=== PATIENT | female | born 1995 ===

== ENCOUNTER 2024-10-16 | Outpatient (REF) | payer MEDICAID, SELFPAY ==
[2024-10-18 11:55] LABS: Bacterial Vaginosis PCR NEGATIVE (Negative); Candida Group PCR NOT DETECTED (Not Detect); Candida glab krusei PCR NOT DETECTED (Not Detect); Trichomonas vaginalis PCR NOT DETECTED (Not Detect)
[2024-10-18 18:24] LABS: CT PCR NOT DETECTED (Not Detect.); NG PCR NOT DETECTED (Not Detect.)
== END 2024-10-16 00:01 | disposition home or self-care (01) ==
LOC: HO.HHCLNP
PROVIDERS: Visit Provider Internal Medicine
DX: J06.9 Acute upper respiratory infection, unspecified (principal)
CPT/HCPCS: 81515; 87491; 87591

== ENCOUNTER 2024-11-29 10:04 | Outpatient (REF) | payer MEDICAID, SELFPAY ==
[2024-11-29 11:21] LABS: MANUAL DIFF FLAG NO
[2024-11-29 11:44] LABS: Basophils Percent Auto 0.3 % (0-2); Eosinophils Percent Auto 0.6 % (0-4); Hematocrit 37.3 % (37.0-47.0); Hemoglobin 12.5 g/dl (12.0-16.0); Lymphocytes Absolute Auto 1.8 X10*3/uL (1.2-4.9); Lymphocytes Percent Auto 54.8 % (20-40); Mean Corpuscular HGB Conc 33.5 g/dl (31.0-35.0); Mean Corpuscular Hemoglobin 29.8 pg (27.0-33.0); Mean Platelet Volume 10.9 fL (9.4-12.3); Monocytes Absolute Auto 0.3 X10*3/uL (0.1-1.2); Monocytes Percent Auto 7.7 % (2-11); Neutrophils Absolute Auto 1.2 x10*3/uL (2.0-8.3); Neutrophils Percent Auto 36.6 % (45-73); Platelet Count 144 X10*3/uL (160-400); Red Blood Count 4.19 X10*6/uL (4.20-5.50); Red Cell Distribution Width 12.3 % (11.0-16.0); White Blood Count 3.2 X10*3/uL (4.8-10.8)
[2024-11-29 12:22] LABS: Alanine Aminotransferase 11 U/L (0-31); Albumin Level 4.1 g/dL (3.5-5.0); Alkaline Phosphatase 47 U/L (39-117); Anion Gap 10 (12-20); Aspartate Amino Transferase 21 U/L (5-31); Bilirubin Direct 0.3 mg/dL (0.0-0.5); Bilirubin Total 0.6 mg/dL (0.0-1.0); Blood Urea Nitrogen 14 mg/dL (9-16); Calcium 8.8 mg/dL (8.4-10.2); Carbon Dioxide 26 mmol/L (22-29); Chloride 109 mmol/L (96-108); Cholesterol 104 mg/dL (<200); Estimated Glomerular Filt Rate > 60; Glucose Random 83 mg/dL (60-115); HDL Cholesterol 50 mg/dL (>40); LDL Cholesterol Calculated 45 mg/dL (<100); Potassium 4.3 mmol/L (3.3-5.1); Sodium 141 mmol/L (135-145); Total Protein 7.8 g/dL (6.5-8.0); Triglycerides 46 mg/dL (<150)
[2024-11-29 12:23] LABS: TSH reflex Free T4 1.19 uIU/mL (0.32-4.0)
[2024-11-29 12:26] LABS: HIV AB/AG Nonreactive (Nonreactive); HIV Num 1 0.11 S/CO (0.00-0.99)
[2024-11-29 12:27] LABS: Syphilis Screen Nonreactive (Nonreactive)
--- OUTSIDE RECORDS SUMMARY | 2024-11-29 12:28 | XMS_ITS | Encounter Summary ---
Author Organization [employer] Address [address] [facility] 7t [place] [address] Care Team Providers Care Regulatory Submissions Associate Name Role Phone Kat Nguyen MD Primary Care Provider + Reason for Visit * Reason Onset Date Comments Chart prep 11/26/2024 Encounter Details Date Type Department Care Team (Late st Contact Info) Description 11/26/2024 Telephone [facility] [address] [place] [address] [phone] Kat Nguyen MD [address] [place], [place] [phone] Chart prep Social History Tobacco Use Types Packs/Day Years Used Date Smoking Tobacco: Never Assessed Comments Unknown Sex and Gender Information Value Date Recorded Sex Assigned at Female 10/16/2024 11:19 AM EST Legal Sex Female 11:13 AM EST Gender Identity Female 10/16/2024 11:19 AM EST Sexual Orientation Straight 10/16/2024 11 :19 AM EST documented as of this encounter Miscellaneous Notes * Telephone Encounter - Amanda Kasper [place] - 11/26/2024 1:36 PM EDT Chart Prep Labs: done Images: not applicable Vaccines due: yes Referrals: N/A Screenings: pap smear Overdue care gaps: SDOH, PHQ-9 documented in this encounter Plan of Treatment Upcoming Encounters Date Type Department Care Team (Late st Contact Info) Description 02/25/2025 3:45 PM EDT Office Visit [facility] [address] [place] [address] Kat Nguyen MD [address] [place] [address] documented as of this encounter Visit Diagnoses Not on filedocumented in this encounter Care Teams Regulatory Submissions Associate Relationship Specialty Start Date End Date Kat Nguyen MD [address] [place] [address] PCP - General Internal Medicine 10/16/24 documented as of this encounter
--- OUTSIDE RECORDS SUMMARY | 2024-11-29 12:28 | XMS_ITS | Encounter Summary ---
Author Organization [employer] Address [address] 7t [place] [address] Care Team Providers Care Park Manager Name Role Phone Kat Nguyen MD Primary Care Provider + Encounter Details Date Type Department Care Team ([facility] st Contact Info) Description 11/29/2024 Telephone [facility] [address] [place], [place] [phone] Kat Nguyen MD [address] [place] [address] Social History Tobacco Use Types Packs/Day Years Used Date Smoking Tobacco: Never Smokeless Tobacco: Never Alcohol Use Standard Drinks/Week Comments Never 0 (1 standard drink = 0.6 oz pur e alcohol) Housing Stability Answer Date Recorded What is your housing situation today? I do not have housing (Staying with others, in a hotel, in a nursing home, living outside on the street, on a beach, in a car, or in a park 11/29/[address] you li ve. Do you have problems with any of the following? None of the above 11/29/2024 Food Insecurity Answer Date Recorded Within the past 12 months, y ou worried that your food would run out before you got money to buy more: Never True 11/29/2024 Within the past 12 months,th e food you bought just didn't last and you didn't have enough money to get more: Never True Transportation Answer Date Recorded In the past 12 months, has l ack of transportation kept you from medical appts, meetings, work or from getting things needed for daily living? Yes, it has kept me from medical appointments or getting medications.;Yes, it has kept me from non-medical meetings, work, or getting things that I need 11/29/2024 Utilities Answer Date Recorded In the past 12 months, has t he electric, gas, oil or water company threatened to shut off services in your home? No 11/29/2024 Depression Answer Date Recorded Patient Health Questionnaire-2 Score 2 11/29/2024 Internet Access Answer Date Recorded Internet Access Q1 No 11/29/2024 Internet Access Q2 I do not want or need it 11/17 Comments No Sex and Gender Information Value Date Recorded Sex Assigned at Female 10/16/2024 11:19 AM EST Legal Sex Female 11:13 AM EST Gender Identity Female 10/16/2024 11:19 AM EST Sexual Orientation Straight 10/16/2024 11 :19 AM EST documented as of this encounter Miscellaneous Notes * Telephone Encounter - Barbara Faria - 11/29/2024 9:54 AM EDT Excuse for work documented in this encounter Plan of Treatment Upcoming Encounters Date Type Department Care Team (Late st Contact Info) Description 02/25/2025 3:45 PM EDT Office Visit [facility] [address] [place] [address] Kat Nguyen MD [address] [place] [address] documented as of this encounter Visit Diagnoses Not on filedocumented in this encounter Care Teams Park Manager Relationship Specialty Start Date End Date Kat Nguyen MD [address] [place] [address] PCP - General Internal Medicine 10/16/24 documented as of this encounter
--- OUTSIDE RECORDS SUMMARY | 2024-11-29 12:28 | XMS_ITS | Encounter Summary ---
Author Organization [employer] Address [address] [facility] 7[address] [place] [address] Care Team Providers Care Standards Engineer Name Role Phone Kat Nguyen MD Primary Care Provider + Reason for Referral * Consultation (Routine) - Authorized Specialty Diagnoses / Procedures Referred By Lucy reina Referred To Contact Optometry Diagnoses Decreased vision in both eyes Kat Nguyen MD [address] [place], [place] Phone: tel: fax: [facility] [address], [place] Phone: tel: fax: Referral ID Status Reason Start Date Expiration Date Visits Requested Visits Authorized [id number] Authorized Consult and Treat 11/29/2024 11/29/2025 1 1 * Consultation (Routine) - Authorized Specialty Diagnoses / Procedures Referred By Contac t Referred To Contact Midwifery Diagnoses Breakthrough bleeding on Nexplanon Kat Nguyen MD [address] [place], [place] Phone: tel: fax: Barbi Monroe CNM [address] [place], [place] Phone: tel: fax: Referral ID Status Reason Start Date Expiration Date Visits Requested Visits Authorized [id number] Authorized Consult and Treat 11/29/2024 11/29/2025 1 1 Reason for Visit * Reason Comments new patient appointment Encounter Details Date Type Department Care Team (Late st Contact Info) Description 11/29/2024 9:15 AM EDT Office Visit [facility] [address] [place] [address] Kat Nguyen MD [address] [place], [place] [phone] Breakthrough bleeding on Nexplanon (Primary Dx); Adjustment disorder with anxious mood; Vulvovaginitis; Acute bilateral thoracic back pain; Slow transit constipation; Decreased vision in both eyes Social History Tobacco Use Types Packs/Day Years Used Date Smoking Tobacco: Never Smokeless Tobacco: Never Tobacco Cessation:Counseling Given: Not Answered Alcohol Use Standard Drinks/Week Comments Never 0 (1 standard drink = 0.6 oz pur e alcohol) Housing Stability Answer Date Recorded What is your housing situation today? I do not have housing (Staying with others, in a hotel, in a long-term, living outside on the street, on a [...] AM EST documented as of this encounter Last Filed Vital Signs Vital Sign Reading Time Taken Comments Blood Pressure 103/63 11/29/2024 9:19 AM EDT Pulse 62 11/29/2024 9:19 AM EDT Temperature 35.7 ??C (96.3 ??F) 11/29/2024 9:19 AM ED T Respiratory Rate 12 11/29/2024 9:19 AM EDT Oxygen Saturation 100% 11/29/2024 9:19 AM EDT Inhaled Oxygen Concentration - - Weight 63.7 kg (140 lb 8 oz) 11/29/2024 9:19 AM EDT Height 172.4 cm (5' 7.88 ) 11/29/2024 9:19 AM ED T Body Mass Index 21.44 11/29/2024 9:19 AM EDT documented in this encounter Miscellaneous Notes * Patient Education Note - Kat Nguyen MD - 11/29/2024 1:45 PM EDT Images from the original note were not included. Patient Education Table of Contents C?mo controlar el dolor de espalda cr?rosalva (Managing Chronic Back Pain) To view videos and all your education online visit, [email or web address] or scan this QR code with your smartphone. Access to this content will in one year. C?mo controlar el dolor de espalda cr?rosalva Managing Chronic Back Pain El dolor de espalda cr?rosalva es aquel que dura m?s de 3 meses. Con frecuencia afecta la [place] lumbar de la espalda. Puede experimentarse mehran un dolor muscular o mehran un dolor intenso y punzante. Puedeser leve, moderado o intenso. Hay cosas que puede hacer para controlar el dolor. Jenna qu?? funciona mejor para usted. El m?dico tambi?n podr?? darle otras instrucciones. ?Qu?? medidas puedo cliff para controlar mi dolor de espalda cr?rosalva? Es posible que el m?dico le d?? un plan de tratamiento. El tratamiento suele comenzar con reposo y alivio del dolor. Tambi?n puede incluir lo siguiente: Fisioterapia. Estos son ejercicios cuyo fin es restaurar toda la movilidad y la fuerza de la espalda. T?cnicas para ayudarlo a relajarse. Asesoramiento psicol?gico o terapia. La terapia cognitivo conductual (TCC) es lala forma de terapia que lo ayuda a establecer objetivos y hacer cambios. Acupuntura o terapia de masajes. Estimulaci?n el?ctrica local. Inyecciones. Pueden administrarle medicamentos para adormecer la [place] o aliviar el dolor. Si otros tratamientos no resultan eficaces, giovanny vez deba someterse a lala cirug?a. C?mo usar la mec?carli del cuerpo y la postura para aliviar el dolor Puede ayudar a aliviar la tensi?n de la espalda con lala buena postura y mec?carli corporal saludable. La mec?carli corporal es la forma en que el cuerpo se mueve stormy el d?a. La postura es lala partede la mec?carli corporal. Lala buena postura significa que: La columna est?? en way posici?n correcta de curvatura en S, o posici?n neutral. Los hombros est?n ligeramente hacia atr?s. La karina no est?? inclinada hacia adelante. Para mejorar la postura y la mec?carli corporal, siga estas pautas. De pie Al estar de pie, mantenga los pies separados aproximadamente al ancho de caderas. Mantenga las rodillas levemente flexionadas. Las orejas, los hombros y las caderas deben estar alineados. La columna vertebral debe estar en posici?n neutral. Cuando est?? de pie en el mismo lugar stormy mucho tiempo, apoye un pie sobre un objeto estable que tenga de 2 a 4 pulgadas (5 a 10?cm) de alto, mehran un taburete. Sentado Cuando est?? sentado, mantenga los pies apoyados en el suelo. Use un apoyapi?s si es necesario. Mantenga los muslos paralelos al suelo. Trate de no redondear los hombros ni inclinar la karina hacia adelante. Cuando trabaje en un escritorio o en lala computadora: ? Coloque el escritorio de modo que las pieter queden un poco m?s bajas que los codos. ? Deslice la silla debajo del escritorio para estar lo suficientemente cerca y tener lala buena postura. ? Coloque el monitor de modo que beni hacia adelante y no tenga que inclinar la karina para dameon la pantalla. Levantar objetos Mantenga los pies planos y paralelos a los hombros. Apriete los m?sculos del abdomen. Doble las rodillas y la cadera. Mantenga la columna en posici?n neutral. Levante los objetos utilizando la fuerza de las piernas, no de la espalda. No trabe las rodillas hacia afuera. Pida ayuda a otra persona para levantar objetos pesados o inc?modos. Reposo No se recueste de lala manera que le cause dolor. Si siente dolor al sentarse, inclinarse, agacharse, o ponerse en cuclillas, recu?stese de modo que el cuerpo no se doble demasiado. Trate de no acurrucarse de costado con los brazos y las rodillas cerca del pecho (posici?n ). Si le duele estar de pie stormy mucho tiempo o estirar los brazos, recu?stese con la columna en posici?n neutral y las rodillas ligeramente flexionadas. Intente recostarse: ? De costado con lala almohada entre las rodillas. ? Boca arriba con lala almohada debajo de las rodillas. C?mo reconocer los cambios en el dolor de espalda cr?rosalva Informe al m?dico si el dolor empeora o no mejora con el tratamiento. El dolor de espalda puede empeorar si tiene dolor que: Comienza a causar problemas con la postura. Empeora al sentarse, ponerse de pie, caminar, inclinarse o levantar objetos. Ocurre cuando est?? activo, en reposo o en ambas situaciones. Dificulta el movimiento (limita la movilidad). Ocurre con fiebre, p?rdida de peso o dificultad para hacer pis (orinar). Causa adormecimiento y hormigueo. Siga estas instrucciones en way casa: Medicamentos Es posible que deba usar analg?sicos para el dolor y la inflamaci?n. Estos pueden tomarse por boca o colocarse sobre la piel. Tambi?n pueden darle relajantes musculares. Use los medicamentos de venta keyanna y los recetados solo mehran se lo haya indicado el m?dico. Preg?ntele al m?dico si el medicamento que se le recet?: ? Requiere que evite conducir o usar maquinaria. ? Puede causarle estre?imiento. Es posible que tenga que cliff estas medidas para prevenir o tratarel estre?imiento: ? Beber suficiente l?quido para mantener el pis (orina) de color amarillo p?lido. ? Usar medicamentos recetados o de venta keyanna. ? Consumir alimentos ricos en fibra, mehran frijoles, cereales integrales, y frutas y verduras frescas. ? Limitar el consumo de alimentos ricos en grasa y az?cares procesados, mehran los alimentos fritos odulces. Estilo de matt No consuma imtiaz?n producto que contenga nicotina o tabaco. Estos productos incluyen cigarrillos, tabaco para mascar y aparatos de vapeo, mehran los cigarrillos electr?nicos. Si necesita ayuda para dejar de fumar, consulte al m?dico. Siga lala dieta saludable. Coma muchas verduras, frutas, pescado y rosita magras. Trabaje con el m?dico para mantener un peso saludable. Instrucciones generales Noemi ejercicio regularmente giovanny mehran se lo hayan indicado. El ejercicio puede ayudar con la flexibilidad y la fuerza. Si debe hacer fisioterapia, realice los ejercicios mehran se lo haya indicado el m?dico. Use terapia con hielo o con calor mehran se lo haya indicado el m?dico. ?D?nde puedo obtener apoyo? Considere la posibilidad de unirse a un ariana de apoyo para personas con dolor de espalda cr?rosalva. Puede encontrar algunos grupos en: Pain Connection Program (Programa de conexi?n del dolor): painconnection.org [place] Chronic Pain Association (Asociaci?n Estadounidense del Dolor Cr?rosalva): acpanow.org Comun?quese con un m?dico si: El dolor no se taniya con reposo ni con medicamentos. Siente un dolor nuevo. Tiene fiebre. Pierde peso con rapidez. Tiene dificultad para realizar las actividades cotidianas. Siente debilidad o adormecimiento en lala o ambas piernas, o en vance o ambos pies. Solicite ayuda de inmediato si: No puede controlar la micci?n o la defecaci?n. Siente dolor intenso en la espalda y: ? N?useas o v?mitos. ? Dolor en el pecho o el abdomen. ? Falta de aire. ? Se desmaya. Estos s?ntomas pueden indicar lala emergencia. Solicite ayuda de inmediato. Llame al 911. No espere a dameon si los s?ntomas desaparecen. No conduzca por juan diego propios medios hasta el hospital. Esta informaci?n no tiene mehran fin reemplazar el consejo del m?dico. Aseg?rese de hacerle al m?dicocualquier pregunta que tenga. Document Released: 2016-09-19 Document Updated: 2023-05-25 Document Reviewed: 2023-05-25 [employer] Patient Education ? 2024 [employer] * Assessment & Plan Note - Geraldine Jarocho - 11/29/2024 10:51 AM EDTAssociated Problem(s): Adjustment disorder with anxious mood Intermittent, probably related to Hx of depression as a child, seems to be able to deal with it by herself, she feels safe at home and is able to reach out for safety. Fu prn. * Assessment & Plan Note - Geraldine Aevndaño - 11/29/2024 9:57 AM EDTAssociated Problem(s): Acute bilateral thoracic back pain Take Tylenol prn, I will give Tylenol PM to take at night for 1-2 weeks, then prn. I gave her information regarding stretching exercises. Fu at next visit. * Assessment & Plan Note - Geraldine Avendaño - 11/29/2024 9:55 AM EDTAssociated Problem(s): Slow transit constipation Advised increased water intake, start Senokot BID. * Assessment & Plan Note - Geraldine Avendaño - 11/29/2024 9:55 AM EDTAssociated Problem(s): Vulvovaginitis Most likely vaginal candidiasis, will treat periodically with Clotrimazole cream, can apply OTC Desitin ointment on affected area. Order vaginal swab and will fu prn upon results. Advised against using panty liners and should only wear cotton underwear. * Assessment & Plan Note - Geraldine Avendaño - 11/29/2024 9:54 AM EDTAssociated Problem(s): Breakthrough bleeding on Nexplanon Pt wants Nexplanon replaced by IUD. Refer to [employer] TEAMMATE. Order STI testing. documented in this encounter Plan of Treatment Upcoming Encounters Date Type Department Care Team (Late st Contact Info) Description 02/25/2025 3:45 PM EDT Office Visit [facility] [address] [place] [address] Kat Nguyen MD [address] [place] [address] Pending Results Name Type Priority Associated Diagnoses Date /Time Comprehensive Metabolic Panel Lab Routine Breakthrough bleeding on Nexplanon Adjustment disorder with anxious mood Slow transit constipation 11/29/2024 10:08 AM EDT TSH with Reflex to Free T4 Lab Routine Slow transit constipation 11/29/2024 10:08 AM EDT Lipid Panel with Reflex to Direct LDL Lab Routine Slow transit constipation 11/29/2024 10:08 AM EDT Scheduled Orders Name Type Priority Associated Diagnoses Orde r Schedule Chlamydia/N. Gonorrhoeae RNA, TMA, Urogenitial Microbiology Routine Vulvovaginitis Ordered: 11/29/2024 Bacterial Vaginosis Microbiology Routine Vulvovaginitis Expected: 11/29/2024 (Approximate), Expires: 11/29/2025 HIV-1/2 Antigen and Antibodies, Fourth Generation, with Reflexes Lab Routine Vulvovaginitis Expected: 11/29/2024 (Approximate), Expires: 11/29/2025 Hepatitis Panel, General Lab Routine Vulvovaginitis Expected: 11/29/2024 (Approximate), Expires: 11/29/2025 Scheduled Referrals Name Type Priority Associated Diagnoses Order Schedule Referral to Gynecology (Barbi) Outpatient Referral Routine Breakthrough bleeding on Nexplanon Expected: 11/29/2024 (Approximate), Expires: 11/29/2025 Referral to Optometry Outpatient Referral Routine Decreased vision in both eyes Expected: 11/29/2024 (Approximate), Expires: 11/29/2025 documented as of this encounter Procedures Procedure Name Priority Date/Time Associated Diagnosis Comments SYPHILIS SCREEN Routine 11/29/2024 10:08 AM EDT Vulvovaginitis TSH W/REFLEX TO FT4 Routine 11/29/2024 1 0:08 AM EDT Slow transit constipation LIPID PANEL WITH REFLEX TO DIRECT LDL Routine 11/29/2024 10:08 AM EDT Slow transit constipation CBC WITH AUTO DIFFERENTIAL Routine 11/29/2024 10:08 AM EDT Vulvovaginitis COMPREHENSIVE METABOLIC PANEL Routine 11/29/2024 10:08 AM EDT Breakthrough bleeding on Nexplanon Adjustment disorder with anxious mood Slow transit constipation documented in this encounter Results * Syphilis Screen (11/29/2024 10:08 AM EDT) Syphilis Screen Nonreactive Nonreactive [facility] Blood 11/29/2024 10:0 8 AM EDT 11/29/2024 11:15 AM EDT us Kat Nguyen MD LAB BLOOD ORDERABLES Fin al Result [facility] [address] [place] [address] [phone] * (ABNORMAL) CBC auto differential (11/29/2024 10:08 AM EDT) Pathologist [facility] White Blood Count 3.2(L) 4.8 - 10.8 X10*3/uL [facility] Red Blood Count 4.19(L) 4.20 - 5.50 X10*6/uL [facility] Hemoglobin 12.5 12.0 - 16.0 g/dl [facility] Hematocrit 37.3 37.0 - 47.0 % [facility] Mean Corpuscular Volume 89.0 80.0 - 98.0 fL [facility] Mean Corpuscular Hemoglobin 29.8 27.0 - 33.0 pg [facility] Mean Corpuscular HGB Conc 33.5 31.0 - 35.0 g/dl [facility] Red Cell Distribution Width 12.3 11.0 - 16.0 % [facility] Platelet Count 144(L) 160 - 400 X10*3/uL [facility] Mean Platelet Volume 10.9 9.4 - 12.3 fL [facility] Neutrophils Percent Auto 36.6(L) 45 - 73 % [facility] Imm Gran Pct Auto 0.0 0.0 - 0.4 % [facility] Lymphocytes Percent Auto 54.8(H) 20 - 40 % [facility] Monocytes Percent Auto 7.7 2 - 11 % [facility] Eosinophils Percent Auto 0.6 0 - 4 % [facility] Basophils Percent Auto 0.3 0 - 2 % [facility] NRBC Pct Auto 0.0 0.0 - 0.2 /100WBC [facility] Neutrophils Absolute Auto 1.2(L) 2.0 - 8.3 x10*3/uL [facility] Imm Gran Abs Auto 0.00 0.00 - 0.03 X10*3/uL [facility] Lymphocytes Absolute Auto 1.8 1.2 - 4.9 X10*3/uL [facility] Monocytes Absolute Auto 0.3 0.1 - 1.2 X10*3/uL [facility] Eosinophils Absolute Auto 0.0 0.0 - 0.4 X10*3/uL [facility] Basophils Absolute Auto 0.0 0.0 - 0.2 X10*3/uL [facility] NRBC Abs Auto 0.000 0.0 - 0.012 X10*3/uL [facility] Blood Venous blood specimen / Unknown 11/29/2024 10:08 AM EDT 11/29/2024 11:15 AM EDT us Kat Nguyen MD LAB BLOOD ORDERABLES Fin al Result Performing Organization Address City/State/[facility] Co de Phone Number [facility] [address] [place] [phone] documented in this encounter Visit Diagnoses Diagnosis Breakthrough bleeding on Nexplanon- Primary Adjustment disorder with anxious mood Adjustment disorder with anxiety Vulvovaginitis Unspecified vaginitis and vulvovaginitis Acute bilateral thoracic back pain Slow transit constipation Decreased vision in both eyes Moderate or severe vision impairment, both eyes, impairment level not further specified documented in this encounter Care Teams Standards Engineer Relationship Specialty Start Date End Date Kat Nguyen MD [address] [place] [phone] PCP - General Internal Medicine 10/16/24 documented as of this encounter
--- OUTSIDE RECORDS SUMMARY | 2024-11-29 12:28 | XMS_ITS | Clinical Summary ---
Author Organization [employer] Address [address] [facility] 7t [place] [address] Care Team Providers Care Svp Research And Strategic Analysis Name Role Phone Kat Nguyen MD Primary Care Provider + Allergies No known active allergies Medications fluticasone (Flonase) 50 MCG/ACT nasal spray Administer 1 spray into each nostril Once per day. 16 g 2 5 Active clotrimazole (Gyne-Lotrimin) 1 % vaginal cream Insert 1 applicator into the vagina in the evening for 7 days. 45 g 5 12/07/19 25 Active diphenhydrAMINE -acetaminophen (Tylenol PM) 25-500 MG per tablet Take 1 tablet by mouth if needed in the morning and at bedtime for sleep (pain/insomnia) . 30 tablet 5 Active senna-docusate (Senokot S) 8.6-50 MG tablet Take 1 tablet by mouth if needed in the morning and at bedtime for constipation. 60 tablet 5 11/30/19 26 Active acetaminophen (Tylenol Extra Strength) 500 MG tablet Take 1 tablet (500 mg) by mouth every 6 (six) hours if needed for mild pain. 120 tablet 5 11/15/19 25 Active Problems Problem Noted Date Diagnosed Date Generalized anxiety disorder 11/29/2024 Adjustment disorder with anxious mood 11/29/2024 Assessment & Plan (11/29/2024 10:51 AM EDT): Intermittent, probably related to Hx of depression as a child, seems to be able to deal with it by herself, she feels safe at home and is able to reach out for safety. Fu prn. Vulvovaginitis 11/29/2024 Assessment & Plan (11/29/2024 12:14 PM EDT): Most likely vaginal candidiasis, will treat periodically with Clotrimazole cream, can apply OTC Desitin ointment on affected area. Order vaginal swab and will fu prn upon results. Advised against using panty liners and should only wear cotton underwear. Acute bilateral thoracic back pain 11/29/2024 Assessment & Plan (11/29/2024 9:57 AM EDT): Take Tylenol prn, I will give Tylenol PM to take at night for 1-2 weeks, then prn. I gave her information regarding stretching exercises. Fu at next visit. Slow transit constipation 11/29/2024 Assessment & Plan (11/29/2024 9:55 AM EDT): Advised increased water intake, start Senokot BID. Breakthrough bleeding on Nexplanon 10/16/2024 Assessment & Plan (11/29/2024 9:54 AM EDT): Pt wants Nexplanon replaced by IUD. Refer to PRESIDENT AND CMO. Order STI testing. Assessment & Plan (10/16/2024 2:08 PM EST): Ordered vaginal swab and follow-up results. She will continue Nexplanon for now and follow-up with PCP. Viral URI 10/16/2024 Assessment & Plan (10/16/2024 2:09 PM EST): Rapid covid/flu are Neg. Rest (sleep at least 8 hours a night). Hydrate with plenty of water (avoid caffeine and alcohol). Use saline nose drops to loosen mucus Take Acetaminophen (Tylenol??)/Ibuprofen as needed to reduce fever, headache, body aches or discomfort Gargle with salt water and use throat sprays/lozenges for throat pain. Use heated, humidified air. If you do not have a humidifier, take hot showers. Cover coughs and sneezes using the crook of your elbow. If you have a fever, stay home and away from others (self isolation) until fever-free for 48 hours (temperature should be less than 100??F without medication). Encounters Date Type Department Care Team Description 11/29/2024 9:15 AM EDT Office Visit [facility] [address] [place] [phone] Kat Nguyen MD Breakthrough bleeding on Nexplanon (Primary Dx); Adjustment disorder with anxious mood; Vulvovaginitis; Acute bilateral thoracic back pain; Slow transit constipation; Decreased vision in both eyes 11/29/2024 Orders Only [facility] [address] [place] [phone] Kat Nguyen MD 11/29/[address] [facility] [address] [place] [phone] Kat Nguyen MD 11/29/2024 Travel 11/26/[address] [facility] [address] [place] [phone] Kat Nguyen MD Chart prep 10/16/2024 1:40 PM EST Office Visit [facility] [address] [place] [address] [phone] Kat Nguyen MD Viral URI (Primary Dx); Breakthrough bleeding on Nexplanon from Last 3 Months Social History Tobacco Use Types Packs/Day Years Used Date Smoking Tobacco: Never Smokeless Tobacco: Never Tobacco Cessation:Counseling Given: Not Answered Alcohol Use Standard Drinks/Week Comments Never 0 (1 standard drink = 0.6 oz pur e alcohol) Housing Stability Answer Date Recorded What is your housing situation today? I do not have housing (Staying with others, in a hotel, in a fpc, living outside on the street, on a [...] Orientation Straight 10/16/2024 11 :19 AM EST Last Filed Vital Signs Vital Sign Reading [...] Mass Index 21.44 11/29/2024 9:19 AM EDT Plan of Treatment Upcoming Encounters Date Type Department Care Team (Late st Contact Info) Description 02/25/2025 3:45 PM EDT Office Visit [facility] [address] [place] [address] Kat Nguyen MD [address] [place] [address] Health Maintenance Due Date Last Done Comments HIV Screening 1994 Alcohol/Substance Use Screening 2006 Family Planning (PISQ) 2009 Hepatitis C Screening 01/26/2012 DTaP/Tdap/Td Vaccines (1 - Tdap) 2013 Hepatitis B Vaccines (1 of 3 - 19+ 3-dose series) 2013 Pap Smear 2015 Cervical Cancer Screening 01/26/2024 HPV/Cotest 01/26/2024 COVID-19 Vaccine (1 - 2023-2 5 season) 2024 Influenza Vaccine (#1) 2024 Depression Screening 11/29/2025 11/29/2024, 11/29/2024 SDOH Screening 11/29/2025 11/29/2024 Tobacco Screening 11/29/2025 11/29/2024 Zoster Vaccines (1 of 2) 01/26/2044 RSV Patients and Patients Aged 60 years or older (1 - 1-dose 75+ series) 2069 HIB Vaccines Aged Out No longer eligi ble based on patient's age to complete this topic HPV Vaccines Aged Out No longer eligi ble based on patient's age to complete this topic Hepatitis A Vaccines Aged Out No long er eligible based on patient's age to complete this topic IPV Vaccines Aged Out No longer eligi ble based on patient's age to complete this topic Meningococcal Vaccine Aged Out No clare mattie eligible based on patient's age to complete this topic Pneumococcal Vaccine: Pediatrics (0 to 5 Years) and At-Risk Patients (6 to 49) Years) Aged Out No longer eligible b ased on patient's age to complete this topic RSV under 20 months Aged Out No longe r eligible based on patient's age to complete this topic Rotavirus Vaccines Aged Out No longer eligible based on patient's age to complete this topic Procedures Procedure Name Priority Date/Time Associated Diagnosis Comments HEPATIC FUNCTION PANEL Routine 11/29/2024 10:08 AM EDT LIPID PANEL WITH REFLEX TO DIRECT LDL Routine 11/29/2024 10:08 AM EDT Slow transit constipation TSH W/REFLEX TO FT4 Routine 11/29/2024 1 0:08 AM EDT Slow transit constipation COMPREHENSIVE METABOLIC PANEL Routine 11/29/2024 10:08 AM EDT Breakthrough bleeding on Nexplanon Adjustment disorder with anxious mood Slow transit constipation CBC WITH AUTO DIFFERENTIAL Routine 11/29/2024 10:08 AM EDT Vulvovaginitis CHLAMYDIA/N. GONORRHOEAE RNA, TMA, UROGENITAL Routine 10/16/2024 2:11 PM EST Viral URI BACTERIAL VAGINOSIS PANEL Routine 10/16/2024 2:11 PM EST Viral URI POCT INFLUENZA B (ID NOW RAPID MOLECULAR) Routine 10/16/2024 1:47 PM EST Viral URI POCT INFLUENZA A (ID NOW RAPID MOLECULAR) Routine 10/16/2024 1:47 PM EST Viral URI POCT RAPID COVID ANTIGEN Routine 10/16/2024 1:47 PM EST Viral URI from Last 3 Months Results * (ABNORMAL) CBC auto differential (11/29/2024 10:08 AM EDT) White Blood Count 3.2(L) 4.8 - 10.8 X10*3/uL [facility] Red Blood Count 4.19(L) 4.20 - 5.50 X10*6/uL [facility] Hemoglobin 12.5 12.0 - 16.0 g/dl [facility] Hematocrit 37.3 37.0 - 47.0 % [facility] Mean Corpuscular Volume 89.0 80.0 - 98.0 fL [facility] Mean Corpuscular Hemoglobin 29.8 27.0 - 33.0 pg [facility] Mean Corpuscular HGB Conc 33.5 31.0 - 35.0 g/dl [facility] Red Cell Distribution Width 12.3 11.0 - 16.0 % [facility] Platelet Count 144(L) 160 - 400 X10*3/uL [facility] Mean Platelet Volume 10.9 9.4 - 12.3 fL [facility] Neutrophils Percent Auto 36.6(L) 45 - 73 % [facility] Imm Gran Pct Auto 0.0 0.0 - 0.4 % [facility] Lymphocytes Percent Auto 54.8(H) 20 - 40 % [facility] Monocytes Percent Auto 7.7 2 - 11 % [facility] Eosinophils Percent Auto 0.6 0 - 4 % [facility] Basophils Percent Auto 0.3 0 - 2 % [facility] NRBC Pct Auto 0.0 0.0 - 0.2 /100WBC [facility] Neutrophils Absolute Auto 1.2(L) 2.0 - 8.3 x10*3/uL [facility] Imm Gran Abs Auto 0.00 0.00 - 0.03 X10*3/uL [facility] Lymphocytes Absolute Auto 1.8 1.2 - 4.9 X10*3/uL [facility] Monocytes Absolute Auto 0.3 0.1 - 1.2 X10*3/uL [facility] Eosinophils Absolute Auto 0.0 0.0 - 0.4 X10*3/uL [facility] Basophils Absolute Auto 0.0 0.0 - 0.2 X10*3/uL [facility] NRBC Abs Auto 0.000 0.0 - 0.012 X10*3/uL [facility] Blood Venous blood specimen / Unknown 11/29/2024 10:08 AM EDT 11/29/2024 11:15 AM EDT us Kat Nguyen MD LAB BLOOD ORDERABLES Fin al Result [facility] [address] [place] [phone] * Bacterial Vaginosis Panel (10/16/2024 2:11 PM EST) TRICHOMONAS VAGINALIS DETECTION BY PCR NOT DETECTED Not Detect [facility] BACTERIAL VAGINOSIS DETECTION BY PCR NEGATIVE Negative [facility] Comment:The BV organism targ ets of the Xpert Xpress MVP test can becommensal in women; Xpert Xpress MVP positive results forbacterial vaginosis should be considered in conjunction withother clinical and patient information to determine thedisease status. Organisms that are not detected by the XpertXpress MVP test have also been reported to be associatedwith BV and aerobic vaginitis.The Xpert Xpress MVP test performance has not been evaluatedin patients under the age of 14. LOLI GROUP DETECTION BY PCR NOT DETECTED Not Detect [facility] Loli glab krusei PCR NOT DETECTED Not Detect [facility] Swab Vaginal structure / Unknown 10/16/2024 2:11 PM EST 10/17/2024 11:28 AM EST us Kat Nguyen MD LAB MICROBIOLOGY - GENER AL ORDERABLES Final Result [facility] [address] [place] [phone] * Chlamydia/N. Gonorrhoeae RNA, TMA, Urogenitial (10/16/2024 2:11 PM EST) CT PCR NOT DETECTED Not Detect. [facility] Comment:A not detected test result does not exclude the possibilityof infection because test results can be affected byimproper specimen collection, concurrent antibiotic therapy,or the number of organisms in the specimen which may bebelow the sensitivity of the test. As with many diagnostictests, results from the Xpert CT/NG assay should beinterpreted in conjunction with other laboratory andclinical data available to the clinician.Xpert CT/NG performance has not been evaluated in patientsless than 14 years of age. The assay should not be used forthe evaluationof suspected sexual abuse or for other medico-legalindications. Additional testing is recommended in anycircumstance when false positive or false negative resultscould lead to adverse medical, social or psychologicalconsequences. NG PCR NOT DETECTED Not Detect. [facility] Comment:A not detected test result does not exclude the possibilityof infection because test results can be affected byimproper specimen collection, concurrent antibiotic therapy,or the number of organisms in the specimen which may bebelow the sensitivity of the test. As with many diagnostictests, results from the Xpert CT/NG assay should beinterpreted in conjunction with other laboratory andclinical data available to the clinician.Xpert CT/NG performance has not been evaluated in patientsless than 14 years of age. The assay should not be used forthe evaluationof suspected sexual abuse or for other medico-legalindications. Additional testing is recommended in anycircumstance when false positive or false negative resultscould lead to adverse medical, social or psychologicalconsequences. Swab (Vaginal Swab) 10/16/2024 2:11 PM EST 10/17/2024 11:28 AM EST Narrative [facility] - 10/18/2024 6:25 PM EST Vaginal Kat Nguyen MD LAB MICROBIOLOGY - GENER AL ORDERABLES Final Result Performing Organization Address [facility] de Phone Number [facility] [address] [place] [address] [phone] * Influenza B (ID NOW Rapid Molecular) (10/16/2024 1:47 PM EST) [facility] [address] Influenza B Negative Negative, Indeterminate [facility] Swab 10/16/2024 1:47 PM EST Kat Nguyen MD POINT OF CARE TEST ENTER /EDIT ORDERABLES Final Result Performing Organization Address [facility] de Phone Number [facility] [address] [place] [phone] * Influenza A (ID NOW Rapid Molecular) (10/16/2024 1:47 PM EST) [facility] [address] Influenza A Negative Negative, Indeterminate [facility] Swab 10/16/2024 1:47 PM EST Kat Nguyen MD POINT OF CARE TEST ENTER /EDIT ORDERABLES Final Result [facility] [address] [place] [phone] * POCT Rapid COVID Ag (10/16/2024 1:47 PM EST) Rapid COVID Ag Negative Swab 10/16/2024 1:47 PM EST Kat Nguyen MD POINT OF CARE TEST ENTER /EDIT ORDERABLES Final Result from Last 3 Months Insurance [employer] Care Teams Svp Research And Strategic Analysis Relationship Specialty Start Date End Date Kat Nguyen MD [address] [place] [phone] PCP - General Internal Medicine 10/16/24
--- OUTSIDE RECORDS SUMMARY | 2024-11-29 12:28 | XMS_ITS | Encounter Summary ---
Author Organization [employer] Address [address] [facility] [address] [place] [address] Care Team Providers Care Rubber Washer Name Role Phone Kat Nguyen MD Primary Care Provider + Encounter Details Date Type Department Care Team (Latest Contact Info) Description 11/29/2024 Travel Social History Tobacco Use Types Packs/Day Years Used Date Smoking Tobacco: Never Smokeless Tobacco: Never Alcohol Use Standard Drinks/Week Comments Never 0 (1 standard drink = 0.6 oz pur e alcohol) Housing Stability Answer Date Recorded What is your housing situation today? I do not have housing (Staying with others, in a hotel, in a alf, living outside on the street, on a [...] AM EST documented as of this encounter Plan of Treatment Upcoming Encounters Date Type Department Care Team (Late st Contact Info) Description 02/25/2025 3:45 PM EDT Office Visit [facility] [address] [place], [place] [phone] Kat Nguyen MD [address] [place] [phone] documented as of this encounter Visit Diagnoses Not on filedocumented in this encounter Care Teams Rubber Washer Relationship Specialty Start Date End Date Kat Nguyen MD [address] [place] [address] [phone] PCP - General Internal Medicine 10/16/24 documented as of this encounter
--- OUTSIDE RECORDS SUMMARY | 2024-11-29 12:28 | XMS_ITS | Encounter Summary ---
Author Organization [employer] Address [address] [facility] 7t [place] [address] Care Team Providers Care Sample Display Preparer Name Role Phone Kat Nguyen MD Primary Care Provider + Encounter Details Date Type Department Care Team ([facility] st Contact Info) Description 11/29/2024 Orders Only [facility] [address] [place], [place] [phone] Kat Nguyen MD [address] [place], [place] [phone] Social History Tobacco Use Types Packs/Day Years Used Date Smoking Tobacco: Never Smokeless Tobacco: Never Alcohol Use Standard Drinks/Week Comments Never 0 (1 standard drink = 0.6 oz pur e alcohol) Housing Stability Answer Date Recorded What is your housing situation today? I do not have housing (Staying with others, in a hotel, in a longterm, living outside on the street, on a [...] Description 02/25/2025 3:45 PM EDT Office Visit [facility] [address] [place] [address] Kat Nguyen MD [address] [place] [address] Pending Results Name Type Priority Associated Diagnoses Date /Time Hepatic Function Panel Lab Routine 10:08 AM EDT documented as of this encounter Procedures Procedure Name Priority Date/Time Associated Diagnosis Comments HEPATIC FUNCTION PANEL Routine 11/29/2024 10:08 AM EDT documented in this encounter Visit Diagnoses Not on filedocumented in this encounter Care Teams Sample Display Preparer Relationship Specialty Start Date End Date Kat Nguyen MD [address] [place] [phone] PCP - General Internal Medicine 10/16/24 documented as of this encounter
[2024-11-29 12:44] LABS: Reflex LDLD? No
[2024-11-30 11:38] LABS: CT PCR NOT DETECTED (Not Detect.); NG PCR NOT DETECTED (Not Detect.)
[2024-11-30 13:55] LABS: Bacterial Vaginosis PCR NEGATIVE (Negative); Candida Group PCR NOT DETECTED (Not Detect); Candida glab krusei PCR NOT DETECTED (Not Detect); Trichomonas vaginalis PCR NOT DETECTED (Not Detect)
== END 2024-11-29 10:05 | disposition home or self-care (01) ==
LOC: HO.HHCL 10:04
PROVIDERS: Visit Provider Internal Medicine
DX: N76.0 Acute vaginitis (principal); N92.1 Excessive and frequent menstruation with irregular cycle; Z97.5 Presence of (intrauterine) contraceptive device; F43.22 Adjustment disorder with anxiety; K59.01 Slow transit constipation
CPT/HCPCS: 36415; 80053; 80061; 81515; 82248; 84443; 85025; 86780; 87389; 87491; 87591

== ENCOUNTER 2024-12-19 08:37 | Outpatient (REF) | payer MEDICAID, SELFPAY ==
--- OUTSIDE RECORDS SUMMARY | 2024-12-19 09:04 | XMS_ITS | Encounter Summary ---
Author Organization [employer] Address [address] [facility] [address] [place] [address] Care Team Providers Care Cardiac Rehabilitation Program Director Name Role Phone Kat Nguyen MD Primary Care Provider + Reason for Visit * Reason Onset Date Comments Labs 12/17/2024 I called the pat ient regarding a Physical and TB Form, from [facility], [facility]. I informed her that an order for a Tspot was sent to the [facility] lab. She stated that she would have the labs done this week. Encounter Details Date Type Department Care Team (Late st Contact Info) Description 12/17/2024 Telephone [employer] [address] [place] [phone] Kat Nguyen MD [address] [place], [place] [phone] Labs (I called the patient regarding a Physical and TB Form, from [facility], [facility]. I informed her that an order for a Tspot was sent to the [facility] lab. She stated that she would have the labs done this week.) Social History Tobacco Use Types Packs/Day Years Used Date Smoking Tobacco: Never Smokeless Tobacco: Never Alcohol Use Standard Drinks/Week Comments Never 0 (1 standard drink = 0.6 oz pur e alcohol) Housing Stability Answer Date Recorded What is your housing situation today? I do not have housing (Staying with others, in a hotel, in a assisted, living outside on the street, on a [...] encounter Miscellaneous Notes * Telephone Encounter - Anupama Anderson [place] - 12/17/2024 2:22 PM EDT I called the patient regarding a Physical and TB Form, from [facility], [employer]. I informed her that an order for a Tspot was sent to the [facility] lab. She stated that she would have the labsdone this week. documented in this encounter Plan of Treatment Upcoming Encounters Date Type Department Care Team (Late st Contact Info) Description 02/25/2025 3:45 PM EDT Office Visit [facility] [address] [place] [phone] Kat Nguyen MD [address] [place] [address] documented as of this encounter Visit Diagnoses Not on filedocumented in this encounter Care Teams Cardiac Rehabilitation Program Director Relationship Specialty Start Date End Date Kat Nguyen MD [address] [place] [phone] PCP - General Internal Medicine 10/16/24 documented as of this encounter
--- OUTSIDE RECORDS SUMMARY | 2024-12-19 09:04 | XMS_ITS | Clinical Summary ---
Author Organization [employer] Address [address] [facility] 7t [place] [address] Care Team Providers Care Accounting Systems Manager Name Role Phone aKt Nguyen MD Primary Care Provider + Allergies No known active allergies Medications fluticasone (Flonase) 50 MCG/ACT nasal spray Administer 1 spray into each nostril Once per day. 16 g 2 10/16/19 25 Active diphenhydrAMIN E-acetaminophe n (Tylenol PM) 25-500 MG per tablet Take 1 tablet by mouth if needed in the morning and at bedtime for sleep (pain/insomnia ). 30 tablet 11/30/19 25 Active senna-docusate (Senokot S) 8.6-50 MG tablet Take 1 tablet by mouth if needed in the morning and at bedtime for constipation. 60 tablet 11/30/19 25 026 Active clotrimazole (Gyne-Lotrimin ) 1 % vaginal cream Insert 1 applicator into the vagina in the evening for 7 days. 45 g 11/30/19 25 025 Discontinued clotrimazole (Lotrimin) 1 % vaginal cream INSERT 1 APPLICATOR INTO THE VAGINA IN THE EVENING FOR 7 DAYS. 45 g 12/04/19 25 025 Active Problems Problem Noted Date Diagnosed Date Neutropenia associated with infection 12/04/2024 Generalized anxiety disorder 11/29/2024 Adjustment disorder with [...] wants Nexplanon replaced by IUD. Refer to LOGISTICS SERVICE REPRESENTATIVE. Order STI testing. Assessment & Plan (10/16/2024 [...] Encounters Date Type Department Care Team Description 12/17/2024 Telephone [facility] [address] [place] [phone] Kat Nguyen MD Labs (I called the patient regarding a Physical and TB Form, from [employer]. I informed her that an order for a Tspot was sent to the [facility] lab. She stated that she would have the labs done this week.) 12/17/[address] [address] Rita Hope RN Lab Orders 12/05/[address] [address] Kat Nguyen MD Results; Lab Orders 12/04/2024 Orders Only [address] [address] Kat Nguyen MD Neutropenia associated with infection (CMS/HCC) (Primary Dx) 11/30/[address] [address] Kat Nguyen MD 11/29/2024 9:15 AM EDT Office Visit [address] [address] Kat Nguyen MD Breakthrough bleeding on Nexplanon (Primary Dx); Adjustment disorder with anxious mood; Vulvovaginitis; Acute bilateral thoracic back pain; Slow transit constipation; Decreased vision in both eyes 11/29/2024 Orders Only [address] [address] Kat Nguyen MD 11/29/[address] [address] Kat Nguyen MD 11/29/2024 Travel 11/26/2024 [address]phone [address] [place] [address] Kat Nguyen MD Chart prep 10/16/2024 1:40 PM EST Office Visit [facility] [address] [place] [address] Kat Nguyen MD Viral URI (Primary Dx); [...] with others, in a hotel, in a penitentiary, living outside on the street, on a [...] Description 02/25/2025 3:45 PM EDT Office Visit [facility] [address] [place] [address] Kat Nguyen MD [address] [place] [address] Health Maintenance Due Date Last Done Comments COVID-19 Vaccine (#1) 1999 Alcohol/Substance Use Screening 2006 Family Planning (PISQ) 2009 Hepatitis C Screening 01/26/2012 DTaP/Tdap/Td Vaccines (1 - Tdap) 2013 Hepatitis B Vaccines (1 of 3 - 19+ 3-dose series) 2013 Pneumococcal Vaccine: Pediatrics (0 to 5 Years) and At-Risk Patients (6 to 49) Years) (1 of 2 - PCV) 2013 Zoster Vaccines (1 of 2) 2013 Pap Smear 2015 Cervical Cancer Screening 01/26/2024 HPV/Cotest 01/26/2024 Influenza Vaccine (#1) 2024 Depression Screening 11/29/2025 11/29/2024, 11/29/2024 SDOH Screening 11/29/2025 11/29/2024 Tobacco Screening 11/29/2025 11/29/2024 RSV Patients and Patients Aged 60 years or older (1 - 1-dose 75+ series) 2069 HIV Screening Completed 11/29/2024 HIB Vaccines Aged Out No longer eligi [...] 11/29/2024 10:08 AM EDT Slow transit constipation SYPHILIS SCREEN Routine 11/29/2024 10:08 AM EDT Vulvovaginitis HIV 1/2 ANTIGEN/ANTIBODY, FOURTH GENERATION W/RFL Routine 11/29/2024 10:08 AM EDT Vulvovaginitis TSH W/REFLEX TO FT4 Routine 11/29/2024 1 0:08 AM EDT Slow transit constipation COMPREHENSIVE METABOLIC PANEL Routine 11/29/2024 10:08 AM EDT Breakthrough bleeding on Nexplanon Adjustment disorder with anxious mood Slow transit constipation CBC WITH AUTO DIFFERENTIAL Routine 11/29/2024 10:08 AM EDT Vulvovaginitis BACTERIAL VAGINOSIS PANEL Routine 11/29/2024 9:45 AM EDT CHLAMYDIA/N. GONORRHOEAE RNA, TMA, UROGENITAL Routine 11/29/2024 9:45 AM EDT Vulvovaginitis CHLAMYDIA/N. GONORRHOEAE RNA, TMA, [...] URI from Last 3 Months Results * Syphilis Screen (11/29/2024 10:08 AM EDT) Syphilis Screen Nonreactive Nonreactive [facility] Blood 11/29/2024 10:0 8 AM EDT 11/29/2024 11:15 AM EDT us Kat Nguyen MD LAB BLOOD ORDERABLES Fin al Result Performing Organization Address [facility] Co de Phone Number [facility] [address] [place] [phone] * TSH with Reflex to Free T4 (11/29/2024 10:08 AM EDT) TSH reflex Free T4 1.19 0.32 - 4.0 uIU/mL [facility] Blood 11/29/2024 10:0 8 AM EDT 11/29/2024 11:15 AM EDT us Kat Nguyen MD LAB BLOOD ORDERABLES Fin al Result Performing Organization Address City/[facility]/ZIP Co de Phone Number [facility] [address] [place] [phone] * Lipid Panel with Reflex to Direct LDL (11/29/2024 10:08 AM EDT) Triglycerides 46 <150 mg/dL [facility] Comment:Desirable Triglyceri de: less than 150 mg/dLBorderline High Triglyceride 150-199 mg/dLHigh Triglyceride: 200-499 mg/dLVery High Triglyceride: greater than or equal to 5OO mg/dL Cholesterol 104 <200 mg/dL [facility] Comment:Desirable Cholestero l: less than 200 mg/dLBorderline High Cholesterol: 200-239 mg/dLHigh Cholesterol: greater than 239 mg/dL LDL Cholesterol Calculated 45 <100 mg/dL [facility] Comment:Desirable LDL: less than 100 mg/dLNear Optimal/Above Optimal LDL: 110- 129 mg/dLBorderline High LDL: 130-159 mg/dLHigh LDL: 160-189 mg/dLVery High LDL: greater than or equal to 190 mg/dL HDL Cholesterol 50 >40 mg/dL [facility] Comment:Desirable HDL: great er than 40 mg/dL Note: This HDL assay may give artificially low results in patients with liver disease. Blood 11/29/2024 10:0 8 AM EDT 11/29/2024 11:15 AM EDT us Kat Nguyen MD LAB BLOOD ORDERABLES Fin al Result [facility] [address] [place] [phone] * (ABNORMAL) CBC auto differential (11/29/2024 10:08 AM EDT) White Blood Count 3.2(L) 4.8 - 10.8 X10*3/uL [facility] Red Blood Count 4.19(L) 4.20 - 5.50 X10*6/uL [facility] Hemoglobin 12.5 12.0 - 16.0 g/dl [facility] Hematocrit 37.3 37.0 - 47.0 % [facility] Mean Corpuscular Volume 89.0 80.0 - 98.0 fL [facility] Mean Corpuscular Hemoglobin 29.8 27.0 - 33.0 pg [facility] Mean Corpuscular HGB Conc 33.5 31.0 - 35.0 g/dl [facility] Red Cell Distribution Width 12.3 11.0 - 16.0 % [facility] Platelet Count 144(L) 160 - 400 X10*3/uL [facility] Mean Platelet Volume 10.9 9.4 - 12.3 fL [facility] Neutrophils Percent Auto 36.6(L) 45 - 73 % [facility] Imm Gran Pct Auto 0.0 0.0 - 0.4 % [facility] Lymphocytes Percent Auto 54.8(H) 20 - 40 % [facility] Monocytes Percent Auto 7.7 2 - 11 % [facility] Eosinophils Percent Auto 0.6 0 - 4 % [facility] Basophils Percent Auto 0.3 0 - 2 % [facility] NRBC Pct Auto 0.0 0.0 - 0.2 /100WBC [facility] Neutrophils Absolute Auto 1.2(L) 2.0 - 8.3 x10*3/uL [facility] Imm Gran Abs Auto 0.00 0.00 - 0.03 X10*3/uL [facility] Lymphocytes Absolute Auto 1.8 1.2 - 4.9 X10*3/uL [facility] Monocytes Absolute Auto 0.3 0.1 - 1.2 X10*3/uL [facility] Eosinophils Absolute Auto 0.0 0.0 - 0.4 X10*3/uL [facility] Basophils Absolute Auto 0.0 0.0 - 0.2 X10*3/uL [facility] NRBC Abs Auto 0.000 0.0 - 0.012 X10*3/uL [facility] Blood Venous blood specimen / Unknown 11/29/2024 10:08 AM EDT 11/29/2024 11:15 AM EDT us Kat Nguyen MD LAB BLOOD ORDERABLES Fin al Result Performing Organization Address [facility] Co de Phone Number [facility] [address] [place] [phone] * HIV-1/2 Antigen and Antibodies, Fourth Generation, with Reflexes (11/29/2024 10:08 AM EDT) HIV AB/AG Nonreactive Nonreactive [facility] Comment:HIV-1 p24 Ag and/or HIV-1/HIV-2 Ab not detected.A test result that is nonreactive does not exclude thepossibility of exposure to or infection with HIV-1 and/orHIV-2. Nonreactive results in this assay for individualswith prior exposure to HIV-1 and/or HIV-2 may be due toantigen and antibody levels that are below the limit ofdetection of this assay.The [employer] HIV Ag/Ab Combo assay result andsupplemental assay results should be interpreted inconjunction with the patient's clinical presentation,history and other laboratory results. If the results areinconsistent with clinical evidence, additional testing issuggested to confirm the result. Blood Venous blood specimen / Unknown 11/29/2024 10:08 AM EDT 11/29/2024 11:15 AM EDT us Kat Nguyen MD LAB BLOOD ORDERABLES Fin al Result Performing Organization Address [facility] Co de Phone Number [facility] [address] [place] [phone] * Hepatic Function Panel (11/29/2024 10:08 AM EDT) Bilirubin, Direct 0.3 0.0 - 0.5 mg/dL [facility] 11/29/2024 10:0 8 AM EDT 11/29/2024 11:15 AM EDT us Kat Nguyen MD LAB BLOOD ORDERABLES Fin al Result Performing Organization Address [facility]/ZIP Co de Phone Number [facility] [address] [place] [phone] * (ABNORMAL) Comprehensive Metabolic Panel (11/29/2024 10:08 AM EDT) Sodium 141 135 - 145 mmol/L [facility] Potassium 4.3 3.3 - 5.1 mmol/L [facility] Chloride 109(H) 96 - 108 mmol/L [facility] Carbon Dioxide 26 22 - 29 mmol/L [facility] Anion Gap 10(L) 12 - 20 [facility] Urea Nitrogen (BUN) 14 9 - 16 mg/dL [facility] Creatinine, Serum 0.69 0.5 - 1.4 mg/dL [facility] Estimated Glomerular Filt Rate >60 [facility] Comment:Chronic Kidney Disea se: Estimated GFR < 60 mL/min/1.25i1Uswndk Kidney Disease: Estimated GFR < 15 mL/min/1.73m2 Glucose 83 60 - 115 mg/dL [facility] Calcium 8.8 8.4 - 10.2 mg/dL [facility] Bilirubin, Total 0.6 0.0 - 1.0 mg/dL [facility] Aspartate Amino Transferase 21 5 - 31 U/L [facility] Alanine Aminotransferase 11 0 - 31 U/L [facility] Total Protein 7.8 6.5 - 8.0 g/dL [facility] Albumin Level 4.1 3.5 - 5.0 g/dL [facility] Alkaline Phosphatase 47 39 - 117 U/L [facility] Blood Venous blood specimen / Unknown 11/29/2024 10:08 AM EDT 11/29/2024 11:15 AM EDT us Kat Nguyen MD LAB BLOOD ORDERABLES Fin al Result [facility] [address] [place] [address] [phone] * Bacterial Vaginosis (11/29/2024 9:45 AM EDT) Only the most recent of2 resultswithin the time period is included. TRICHOMONAS VAGINALIS DETECTION BY PCR NOT DETECTED Not Detect [facility] BACTERIAL VAGINOSIS DETECTION BY PCR NEGATIVE Negative [facility] Comment:The BV organism targ ets of [...] DETECTION BY PCR NOT DETECTED Not Detect [facility] Loli glab krusei PCR NOT DETECTED Not Detect [facility] 11/29/2024 9:45 AM EDT 11/29/2024 4:34 PM EDT us Kat Nguyen MD LAB MICROBIOLOGY - GENER AL ORDERABLES Final Result [facility] [address] [place] [phone] * Chlamydia/N. Gonorrhoeae RNA, TMA, Urogenitial (11/29/2024 9:45 AM EDT) Only the most recent of2 resultswithin the time period is included. CT PCR NOT DETECTED Not Detect. [facility] Comment:A not detected test result does [...] psychologicalconsequences. NG PCR NOT DETECTED Not Detect. [facility] Comment:A not detected test result does [...] to adverse medical, social or psychologicalconsequences. Swab Vaginal structure / Unknown 11/29/2024 9:45 AM EDT 11/29/2024 4:34 PM EDT Narrative [facility] - 11/30/2024 11:38 AM EDT Vaginal Kat Nguyen MD LAB MICROBIOLOGY - GENER AL ORDERABLES Final Result Performing Organization Address [facility]/ZIP Co de Phone Number [facility] [address] [place] [phone] * Influenza B (ID NOW Rapid Molecular) (10/16/2024 1:47 PM EST) Influenza B Negative Negative, Indeterminate [facility] Swab 10/16/2024 1:47 PM EST Kat Nguyen MD POINT OF CARE TEST ENTER /EDIT ORDERABLES Final Result Performing Organization Address [facility]/ZIP Co de Phone Number [facility] [address] [place] [phone] * Influenza A (ID NOW Rapid Molecular) (10/16/2024 1:47 PM EST) Influenza A Negative Negative, Indeterminate [facility] Swab 10/16/2024 1:47 PM EST Kat Nguyen MD POINT OF CARE TEST ENTER /EDIT ORDERABLES Final Result [facility] [address] [place] [phone] [phone] * POCT Rapid COVID Ag (10/16/2024 1:47 PM EST) Rapid COVID Ag Negative Swab 10/16/2024 1:47 PM EST Kat Nguyen MD POINT OF CARE TEST ENTER /EDIT ORDERABLES Final Result from Last 3 Months Insurance [facility] C3 Care Teams Accounting Systems Manager Relationship Specialty Start Date End Date Kat Nguyen MD [address] [place] [phone] PCP - General Internal Medicine 10/16/24
--- OUTSIDE RECORDS SUMMARY | 2024-12-19 09:04 | XMS_ITS | Encounter Summary ---
Author Organization [employer] Address [address] [facility] 7t [place] [address] Care Team Providers Care Lockstitch Cup Setter Name Role Phone Kat Nguyen MD Primary Care Provider + Reason for Visit * Reason Onset Date Comments Lab Orders 12/17/2024 Encounter Details Date Type Department Care Team ([facility] Contact Info) Description 12/17/2024 Telephone [facility] [address] [place], [place] [phone] Rita Hope RN [address] [place] [address] Lab Orders Social History Tobacco Use Types Packs/Day Years [...] encounter Miscellaneous Notes * Telephone Encounter - Rita Hope RN - 12/17/2024 1:33 PM EDT TC from forms dept that pt. Is in need of tb testing, lab order placed and they will make pt. aware documented in this encounter Plan of Treatment Upcoming Encounters Date Type Department Care Team (Late st Contact Info) Description 02/25/2025 3:45 PM EDT Office Visit [facility] [address] [place] [phone] Kat Nguyen MD [address] [place] [address] Scheduled Orders Name Type Priority Associated Diagnoses Orde r Schedule T-SPOT??.TB Lab Routine Screening examination for pulmonary tuberculosis Expected: 12/17/2024 (Approximate), Expires: 12/17/2025 documented as of this encounter Visit Diagnoses Diagnosis Screening examination for pulmonary tuberculosis documented in this encounter Care Teams Lockstitch Cup Setter Relationship Specialty Start Date End Date Kat Nguyen MD [address] [place] [address] PCP - General Internal Medicine 10/16/24 documented as of this encounter
[2024-12-19 11:35] LABS: MANUAL DIFF FLAG NO
[2024-12-19 11:38] LABS: Basophils Percent Auto 0.3 % (0-2); Eosinophils Percent Auto 0.3 % (0-4); Hematocrit 39.1 % (37.0-47.0); Hemoglobin 13.4 g/dl (12.0-16.0); Lymphocytes Absolute Auto 1.8 X10*3/uL (1.2-4.9); Mean Corpuscular HGB Conc 34.3 g/dl (31.0-35.0); Mean Corpuscular Hemoglobin 30.8 pg (27.0-33.0); Mean Corpuscular Volume 89.9 fL (80.0-98.0); Mean Platelet Volume 10.9 fL (9.4-12.3); Monocytes Absolute Auto 0.2 X10*3/uL (0.1-1.2); Monocytes Percent Auto 7.1 % (2-11); Neutrophils Percent Auto 33.3 % (45-73); Platelet Count 179 X10*3/uL (160-400); Red Blood Count 4.35 X10*6/uL (4.20-5.50); Red Cell Distribution Width 12.3 % (11.0-16.0); White Blood Count 3.1 X10*3/uL (4.8-10.8)
[2024-12-19 12:06] LABS: Alanine Aminotransferase 8 U/L (0-31); Albumin Level 4.2 g/dL (3.5-5.0); Alkaline Phosphatase 43 U/L (39-117); Aspartate Amino Transferase 22 U/L (5-31); Bilirubin Direct 0.2 mg/dL (0.0-0.5); Bilirubin Total 0.5 mg/dL (0.0-1.0); Lactate Dehydrogenase 184 U/L (122-220); Total Protein 7.9 g/dL (6.5-8.0)
[2024-12-19 12:12] LABS: HIV AB/AG Nonreactive (Nonreactive); HIV Num 1 0.07 S/CO (0.00-0.99)
[2024-12-19 12:14] LABS: Syphilis Screen Nonreactive (Nonreactive)
[2024-12-19 12:16] LABS: Erythrocyte Sedimentation Rate 6 MM/HR (0-20)
[2024-12-22 00:24] LABS: TS Negative Control Passed; TS Panel A 0; TS Panel B 0; TS Positive Control Passed; TSpotTB Negative (Negative)
== END 2024-12-19 08:38 | disposition home or self-care (01) ==
LOC: HO.HHCL 08:37
PROVIDERS: Visit Provider Internal Medicine
DX: Z13.89 Encounter for screening for other disorder (principal)
CPT/HCPCS: 36415; 80076; 83615; 85025; 85652; 86481; 86780; 87389

== ENCOUNTER 2025-04-24 11:30 | Outpatient (REF) | payer MEDICAID, SELFPAY ==
--- NOTE | ~2025-04-24 | XR_ITS ---
EXAMINATION: XR ABDOMEN 2 VIEWS SUPINE ERECT HISTORY: CONSTIPATION COMPARISON: There are no prior studies available for comparison. FINDINGS: Supine and upright views of the abdomen are submitted. The bowel gas pattern is unremarkable, without evidence of mechanical obstruction. There is no free intraperitoneal gas. There is a large amount of stool throughout the colon. No abnormal calcifications are identified. There are no abnormal soft tissue masses. The bones are intact. XR/XR abdomen min 2V IMPRESSION: Large amount of stool throughout the colon. Electronically signed by: Charly Martines MD 04/24/2025 12:53 PM EDT
--- OUTSIDE RECORDS SUMMARY | 2025-04-24 11:15 | XMS_ITS | Encounter Summary ---
Author Organization [employer] Address [address] [facility] 7[address] [place] [address] Care Team Providers Care Box Spring Frame Builder Name Role Phone Kat Nguyen MD Primary Care Provider + Reason for Referral * Consultation (Routine) - Pending Review Specialty Diagnoses / Procedures Referred By Contmatthew t Referred To Contact Chiropractic Medicine Diagnoses Chronic low back pain with sciatica, sciatica laterality unspecified, unspecified back pain laterality Terra Enriquez NP [address] [place] [address] Phone: tel: fax: Referral ID Status Reason Start Date Expiration Date Visits Requested Visits Authorized [id number] Pending Review Specialty Services Required 04/24/2025 04/24/2026 1 1 * Consultation (Routine) - Pending Review Specialty Diagnoses / Procedures [facility] Referred To Contact Gastroenterology Diagnoses Slow transit constipation Terra Enriquez NP [address] [place] [address] Phone: tel: fax: Referral ID Status Reason Start Date Expiration Date Visits Requested Visits Authorized [id number] Pending Review Specialty Services Required 04/24/2025 04/24/2026 1 1 Encounter Details Date Type Department Care Team (Late st Contact Info) Description 04/24/2025 11:15 AM EDT Office Visit [facility] [address] [place] [address] Terra Enriquez NP [address] [place] [address] Slow transit constipation (Primary Dx); Gastroesophageal reflux disease without esophagitis; Chronic low back pain with sciatica, sciatica laterality unspecified, unspecified back pain laterality; Dysmenorrhea Social History Tobacco Use Types Packs/Day Years Used Date Smoking Tobacco: Never Passive Smoke Exposure: Never Smokeless Tobacco: Never Alcohol Use Standard Drinks/Week Comments Never 0 (1 standard drink = 0.6 oz pur e alcohol) Housing Stability Answer Date Recorded What is your housing situation today? I do not have housing (Staying with others, in a hotel, in a detention, living outside on the street, on a [...] t he electric, gas, oil or water [employer] threatened to shut off services in your [...] Sign Reading Time Taken Comments Blood Pressure 110/72 04/24/2025 10:41 AM EDT Pulse 57 04/24/2025 10:41 AM EDT Temperature 35.6 C (96 F) 04/24/2025 10:41 AM EDT Respiratory Rate 16 04/24/2025 10:41 AM EDT Oxygen Saturation 98% 04/24/2025 10:41 AM EDT Inhaled Oxygen Concentration - - Weight 64.4 kg (142 lb) 04/24/2025 10:41 AM EDT Height 170.2 cm (5' 7 ) 04/24/2025 10:41 AM EDT Body Mass Index 22.24 04/24/2025 10:41 AM EDT documented in this encounter Plan of Treatment Upcoming Encounters Date Type Department Care Team (Late st Contact Info) Description 05/01/2025 11:00 AM EDT Procedure Visit [facility] [address] [place] [address] Emi Tompkins CNP [address] [place] [address] Scheduled Orders Name Type Priority Associated Diagnoses Orde r Schedule XR KUB and Upright 2 Views Imaging Routine Slow transit constipation Gastroesophageal reflux disease without esophagitis Expected: 04/24/2025, Expires: 04/24/2026 Scheduled Referrals Name Type Priority Associated Diagnoses Order Schedule Referral to Gastroenterology Outpatient Referral Routine Slow transit constipation Expected: 04/24/2025 (Approximate), Expires: 04/24/2026 Referral to Chiropractic Outpatient Referral Routine Chronic low back pain with sciatica, sciatica laterality unspecified, unspecified back pain laterality Expected: 04/24/2025 (Approximate), Expires: 04/24/2026 documented as of this encounter Visit Diagnoses Diagnosis Slow transit constipation- Primary Gastroesophageal reflux disease without esophagitis Esophageal reflux Chronic low back pain with sciatica, sciatica laterality unspecified, unspecified back pain laterality Dysmenorrhea documented in this encounter Care Teams Box Spring Frame Builder Relationship Specialty Start Date End Date Kat Nguyen MD [address] [place] [phone] PCP - General Internal Medicine 10/16/24 documented as of this encounter
== END 2025-04-24 11:31 | disposition home or self-care (01) ==
LOC: HO.HHCL 11:30
PROVIDERS: PCP Internal Medicine; Visit Provider Nurse Practitioner Family
DX: K59.01 Slow transit constipation (principal); K21.9 Gastro-esophageal reflux disease without esophagitis
CPT/HCPCS: 74019

== ENCOUNTER → 2025-04-24 11:39 | Outpatient (BNV) | payer MEDICAID, SELFPAY | PROVIDERS: PCP Internal Medicine; Visit Provider Radiology Diagnostic Radiology | DX: K59.00 Constipation, unspecified (principal) | CPT/HCPCS: 74019 ==

== ENCOUNTER 2025-06-20 15:03 | Outpatient (AMB) | payer MEDICAID, SELFPAY ==
--- NOTE | 2025-06-20 15:14 | MHC.OFFVIS ---
Vital Signs 06/20/25 15:18 Height 5 ft 7 in Weight 141 lb BMI 22.1 BP 120/72 Blood Pressure Location Lt brachial Position Sitting Pulse 78 Intake Visit Reasons: constipation, rectal bleed, sever bloating Intake Note: Patient new consult for constipation, rectal bleed, sever bloating Patient cc: chronic constipation/patient is not able to do any BM x 2 weeks, abominal discomfort/bloating. Multimedia Specialist Required: Yes Multimedia Specialist Name: Unique [id number] Accompanied by: Self / Same As Patient Allergies No Known Allergies Allergy (Verified 06/20/25 15:13) Medication List - Last Reconciled 06/20/25 by Bronwyn Schuster CNP ascorbate calcium (vitamin C) 500 mg PO DAILY magnesium citrate 500 mg PO DAILY PRN HPI HPI constipation, rectal bleed, sever bloating: Details: Patient is a 30-year-old female with PMH of anxiety and adjustment disorder. Referred by PCP for further evaluation of constipation. Ani presents with a lifelong history of constipation, recently worsening over the past three months, now with an absence of bowel movements for approximately 1.5 weeks. She describes occasional soft stools but often has difficulty passing stool despite dietary fiber and adequate hydration. Previous attempts with fiber-rich foods, multiple OTC agents including magnesium citrate (500 mg daily), vitamin C (500 mg daily), bisacodyl (resulted in nausea/vomiting), and a purple powder laxative (ineffective) were unsuccessful. She reports a single episode of blood on the stool, noticed once with wiping. She maintains a robust appetite and eats home-prepared, nutritious meals, avoiding processed or restaurant foods. There is a reported, unintentional weight loss from 148 to 141 lbs over 1?2 months, but no evidence of anemia, thyroid dysfunction, hepatic or renal impairment per recent labs. No personal history of cancer; family history notable for maternal throat cancer. No significant cardiac or pulmonary issues or surgical history. Patient denies: fever/chills, n/v, appetite changes, pyrosis, regurgitation,dysphasia, unintentional wt loss. Social hx: -denies ETOH use -denies recreational drug use -non-smoker - family hx as below -denies personal hx of CA -denies significant cardiopulmonary history -tolerated anesthesia in the past without difficulty. [facility] Medical History (Updated 06/20/25 @ 16:31 by Bronwyn Schuster CNP) Weight loss Constipation Surgical History (Updated 06/20/25 @ 15:15 by Katharine Butterfield) Hx of vaginal surgery Hx of section Family History (Updated 06/20/25 @ 15:16 by Katharine Butterfield) Mother Throat cancer Social History (Updated 06/20/25 @ 15:14 by Katharine Butterfield) Household Members: Family Alcohol intake: never Patient Tobacco Use Status: Never used Tobacco Review of Systems Const Reports as per HPI ENT Reports as per HPI Card Reports as per HPI Resp Reports as per HPI GI Reports as per HPI Reports as per HPI Physical Exam Vital Signs: Last Vital Signs Pulse 78 06/20/25 15:18 BP 120/72 06/20/25 15:18 BMI result Body Mass Index 22.1 Const General: healthy appearing, no acute distress and well developed Nutritional Appearance: average body habitus Orientation/consciousness: patient oriented x3 HEENT Head: Yes normal to inspection, Yes normocephalic and Yes atraumatic Face and sinus: Yes normal facial exam Eyes General: appearance normal, both eyes and all related structures Neck Neck: Yes normal visual inspection Resp Effort & Inspection: normal respiratory effort, able to speak in complete sentences, no tracheal deviation and symmetric chest movement Cardio Jugular venous distension: no JVD GI Inspection: Yes normal to inspection and No distended Palpation (GI): Soft to palpation, not firm, nontender and No hepatosplenomegaly present Auscultation: Hypoactive bowel sounds present Rectal Exam - Female: visual inspection normal, normal sphincter tone, No External hemorrhoid(s) present, No Rectal prolapse, No fecal impaction, No Lesions present (GI), No Anal fissure(s) present, No hemorrhoids, No Laceration(s) present (GI), No Excoriation present (GI), No mass and No tenderness Neuro General: patient oriented x3 Gait exam (Neuro): Normal gait present Psych Appearance: grossly normal Mental Status: mental status grossly normal Speech and movement: Normal speech and movement present Affect: normal affect Attitude: cooperative Thought process: Normal thought process present Thought content: Normal thought content present Insight: Good insight present (Psych) Judgement: Good judgement present (Psych) Assessment & Plan Assessment & Plan (1) Constipation: Code(s): K59.00 - Constipation, unspecified Category: Medical Qualifiers: Constipation type: unspecified constipation type Qualified Code(s): K59.00 - Constipation, unspecified Plan: Long-term constipation, worsened despite first-line diet/laxative measures; isolated rectal bleed; negative recent labs for anemia, normal renal, hepatic, thyroid function; imaging confirms significant fecal retention. DDX: Obstructive etiologies (unlikely given normal rectal exam and imaging not suggestive) VS Colonic neoplasm (less likely given isolated minor bleeding) VS Metabolic (hypothyroidism ruled out by prior testing) VS Pelvic floor dysfunction VS Celiac disease or other malabsorptive process (to be evaluated by serologies) Additional Testing: - Serologic labs: celiac panel, hepatitis serologies, HIV, basic chemistries - Daily weights (home) to monitor for ongoing weight loss - Explained indications for and limitations of colonoscopy in isolated constipation. To consider pending symptom progression and adequate bowel prep Medication Management: - Initiate lactulose solution PO QD; start at 15 mL daily, titrate up to 30 mL as tolerated - Add stool softener: docusate sodium, 2 tabs HS - Continue magnesium citrate if tolerated, but assess for redundant use and discontinue if lactulose effective - Avoid bisacodyl if associated with nausea/vomiting Lifestyle Recommendations: - Maintain high-fiber, home-cooked diet (~25-30g fiber daily) - Continue optimal hydration - Physical activity as tolerated - Daily, consistent weighing (same time, clothes) Follow-Up: - GI follow-up in 6 weeks for symptom assessment, weight review, and possible further diagnostic planning - Instructions to report any red-flag symptoms: worsening abdominal pain, new-onset vomiting, obstipation (no flatus), hematochezia, or systemic symptoms prior to next scheduled visit (2) Weight loss: Code(s): R63.4 - Abnormal weight loss Category: Medical Plan: Unintentional weight loss of ~7 lbs over 1?2 months, not associated with dietary restriction or increased activity; appetite preserved. Additional Testing: - Serial daily weights at home to monitor for ongoing or progressive loss - Additional labs as above to rule out malabsorptive or systemic causes Follow-Up: - Review weight trends at next GI follow-up; escalate workup if >5% loss persists or accelerates - Advise to report further unintentional weight loss, anorexia, or systemic symptoms promptly Plan Follow-up in 6 weeks or sooner as needed Time: I spent a total of 45 minutes on the date of encounter which includes: Preparing to see the patient (reviewed previous documentation, test results and medical history) Performing a medically appropriate exam and/or evaluation Ordering medications, tests, and procedures Documenting clinical information in the health record Orders: Orders Hepatitis A,B,C Profile Today K59.00 - Constipation, unspecified HIV Ab/Ag Today K59.00 - Constipation, unspecified Transglutaminase IgA Today K59.00 - Constipation, unspecified Medications: New docusate sodium take two tablets at bedtime 200 mg (2 x 100 mg) PO BEDTIME 180 caps 3RF constipation lactulose Take 15-30mL daily for constipation. 3,785 mL 0RF constipation Coding Level of Care Code New Pt New Pt Level 4 (72377) Patient Type New Diagnoses Constipation, unspecified constipation type K59.00 Constipation type: unspecified constipation type Weight loss R63.4
[2025-06-20 15:18] VITALS: BP 120/72; PULSE 78; BMI 22.1
--- OUTSIDE RECORDS SUMMARY | 2025-06-20 16:28 | XMS_ITS | Clinical Summary ---
Author Organization [employer] Address [address] [place] [address] Care Team Providers Care Car Servicer Name Role Phone Kat Nguyen MD Primary Care Provider + Allergies No known active allergies Medications fluticasone (Flonase) 50 MCG/ACT nasal spray INSTILL 1 SPRAY IN EACH NOSTRIL ONCE DAILY 48 g 01/08/2025 Active cyclobenzaprine (Flexeril) 10 MG tablet Take 1 tablet (10 mg) by mouth at bedtime for 10 days. 10 tablet 02/25/2025 Active meloxicam (Mobic) 15 MG tablet Take 1 tablet (15 mg) by mouth Once per day. 30 tablet 02/25/2025 02/26/20 26 Active famotidine (Pepcid) 20 MG tablet Take 1 tablet (20 mg) by mouth 2 times daily. 180 tablet 04/26/2025 04/26/20 26 Active bisacodyl (Dulcolax) 5 MG EC tablet Take 1 tablet (5 mg) by mouth if needed each day for constipation . Do not crush, chew, or split. 90 tablet 04/26/2025 Active miSOPROStol (Cytotec) 200 MCG tabletIndicatio ns:Encounter for IUD insertion Take 1 tablet in each cheek 1 hour before appointment. 2 tablet 05/01/2025 Active acetaminophen (Tylenol Extra Strength) 500 MG tabletIndicatio ns:Encounter for IUD insertion Take 1 tablet (500 mg) by mouth every 6 (six) hours if needed for mild pain for up to 23 days. 30 tablet 2 05/01/2025 05/24/20 25 Hospital, Clinic, or Other Facility Administered Medication Ordered Dose Route Frequency Start Date End Date Status lidocaine 2 % gelIndications:Encounter for IUD insertion TOP As needed 05/01/2025 Active Active Problems Problem Noted Date Diagnosed Date Gastroesophageal reflux disease without esophagi tis 04/24/2025 Assessment & Plan (05/31/2025 1:25 PM EDT): Improved, referral to GI due to chronic constipation Chronic low back pain with sciatica 04/24/2025 Dysmenorrhea 04/24/2025 Encounter for other contraceptive management 05/2025 Assessment & Plan (02/25/2025 5:39 PM EDT): Patient is aware of contraceptive options after seen by tool worker, she wants IUD (Mirena) insertion I will refer to tool worker for Mirena insertion We discussed about using of condom or emergency contraception as needed for unprotected intercourse Neck pain 02/25/2025 Assessment & Plan (02/25/2025 5:39 PM EDT): Advised regarding heat to affected area and diclofenac gel as needed Use Tylenol as needed + cyclobenzaprine with Tylenol nightly and meloxicam daily x 1 week Refer to PT Neutropenia associated with infection 12/04/2024 Generalized anxiety disorder 11/29/2024 Adjustment disorder with anxious mood 11/29/2024 Assessment & Plan (11/29/2024 10:51 AM EDT): Intermittent, probably related to Hx of depression as a child, seems to be able to deal with it by herself, she feels safe at home and is able to reach out for safety. Fu prn. Slow transit constipation 11/29/2024 Assessment & Plan (05/31/2025 1:25 PM EDT): Oral agents ineffective, referral to GI No wt loss Assessment & Plan (02/25/2025 5:38 PM EDT): Advised to increase water intake, eat prunes, raisins, papaya, judi, pear or flaxseed powder. DC Senokot and start Metamucil powder. Assessment & Plan (11/29/2024 9:55 AM EDT): Advised increased water intake, start Senokot BID. Breakthrough bleeding on Nexplanon 10/16/2024 Assessment & Plan (11/29/2024 9:54 AM EDT): Pt wants Nexplanon replaced by IUD. Refer to REGIONAL ACCOUNT MANAGER. Order STI testing. Assessment & Plan (10/16/2024 2:08 PM EST): Ordered vaginal swab and follow-up results. She will continue Nexplanon for now and follow-up with PCP. Resolved Problems Problem Noted Date Diagnosed Date Resolved Date Vulvovaginitis 11/29/2024 02/25/2025 Assessment & Plan (11/29/2024 12:14 PM EDT): Most likely vaginal candidiasis, will treat periodically with Clotrimazole cream, can apply OTC Desitin ointment on affected area. Order vaginal swab and will fu prn upon results. Advised against using panty liners and should only wear cotton underwear. Acute bilateral thoracic back pain 11/29/2024 02/25/2025 Assessment & Plan (11/29/2024 9:57 AM EDT): Take Tylenol prn, I will give Tylenol PM to take at night for 1-2 weeks, then prn. I gave her information regarding stretching exercises. Fu at next visit. Viral URI 10/16/2024 02/25/2025 Assessment & Plan (10/16/2024 2:09 PM EST): Rapid covid/flu are Neg. Rest (sleep at least 8 hours a night). Hydrate with plenty of water (avoid caffeine and alcohol). Use saline nose drops to loosen mucus Take Acetaminophen (Tylenol )/Ibuprofen as needed to reduce fever, headache, body [...] 48 hours (temperature should be less than 100 F without medication). Encounters Date Type Department Care Team Description 06/07/[address] [address] Kat Nguyen MD Referral Request 05/31/[address] [address] Terra Enriquez NP 05/30/2025 11:30 AM EDT Office Visit [address] [address] Barbi Monroe CNM Breast pain, right (Primary Dx); Encounter for IUD insertion; Sterilization consult 05/30/2025 Travel 05/29/2025 Telephone [facility] [address] [place] [phone] Margot Andrews MA 05/17/[address] [address] Kat Nguyen MD Referral 05/01/2025 11:00 AM EDT Procedure Visit [address] [address] Emi Tompkins CNP Encounter for IUD insertion (Primary Dx); Encounter for emergency contraception 05/01/2025 Travel 04/30/[address] [address] Emi Tompkins CNP Chart Prep 04/26/2025 Refill [facility] [address] [place], [place] [phone] Kat Nguyen MD 04/25/2025 Results Follow-Up [address] [address] Marcela Mueller, CJ XR Abdomen 2 View minimum 04/24/2025 11:15 AM EDT Office Visit [address] [address] Terra Enriquez NP Slow transit constipation (Primary Dx); Gastroesophageal reflux disease without esophagitis; Chronic low back pain with sciatica, sciatica laterality unspecified, unspecified back pain laterality; Dysmenorrhea 04/24/2025 Orders Only [facility] [address] [place] [phone] Terra Enriquez NP 04/24/[address] [phone] Kat Nguyen MD Change PCP (PT requesting to change PCP to Terra Enriquez due to feeling more comfortable. Pt explains she always feels rushed during visits and rarely ever gets seen. ) 04/24/2025 Travel 04/19/2025 Telephone [facility] [address], [place] [phone] Kat Nguyen MD 04/18/[address] [phone] Kta Nguyen MD Nurse Triage from Last 3 Months Social History Tobacco Use Types Packs/Day Years Used Date Smoking Tobacco: Never Passive Smoke Exposure: Never Smokeless Tobacco: Never Tobacco Cessation:Counseling Given: Not Answered Alcohol Use Standard Drinks/Week Comments Never 0 (1 standard drink = 0.6 oz pur e alcohol) Housing Stability Answer Date Recorded What is your housing situation today? I do not have housing (Staying with others, in a hotel, in a group home, living outside on the street, on [...] want or need it 11/17 Comments No Intention Date Recorded No desire to become (finding) 0 05/30/2025 Sex and Gender Information Value Date Recorded Sex Assigned at Female 10/16/2024 11:19 AM EST Legal Sex Female 11:13 AM EST Gender Identity Female 10/16/2024 11:19 AM EST Sexual Orientation Straight 10/16/2024 11 :19 AM EST Last Filed Vital Signs Vital Sign Reading Time Taken Comments Blood Pressure 100/80 05/30/2025 11:00 AM EDT Pulse 67 05/30/2025 11:00 AM EDT Temperature 37.1 C (98.8 F) 05/30/2025 11:00 AM EDT Respiratory Rate 12 05/30/2025 11:0 0 AM EDT Oxygen Saturation 96% 05/30/2025 11: 00 AM EDT Inhaled Oxygen Concentration - - Weight 64.3 kg (141 lb 12.8 oz) 025 11:00 AM EDT Height 172 cm (5' 7.72 ) 05/01/2025 10: 51 AM EDT Body Mass Index 21.74 05/01/2025 10:51 AM EDT Plan of Treatment Health Maintenance Due Date Last Done Comments COVID-19 Vaccine (#1) 1999 HPV Vaccines (1 - 3-dose series) 2009 Hepatitis C Screening 01/26/2012 DTaP/Tdap/Td Vaccines (1 - Tdap) 2013 Hepatitis B Vaccines (1 of 3 - 19+ 3-dose series) 2013 Pneumococcal Vaccine: Pediatrics (0 to 5 Years) and At-Risk Patients (6 to 49) Years (1 of 2 - PCV) 2013 Zoster Vaccines (1 of 2) 2013 Influenza Vaccine (#1) 2025 Depression Screening 11/29/2025 11/29/2024, 11/29/2024 SDOH Screening 11/29/2025 11/29/2024 Alcohol/Substance Use Screening 01/16/2026 01/16/2025 Disability Screening 01/16/2026 01/16/2025 Family Planning (PISQ) 05/30/2026 05/30/2025 Tobacco Screening 05/30/2026 05/30/2025 Pap Smear 05/07/2027 05/07/2024 Cervical Cancer Screening 05/07/2029 HPV/Cotest 05/07/2029 05/07/2024 RSV Patients and Patients Aged 60 years or older (1 - 1-dose 75+ series) 2069 HIV Screening Completed 12/19/2024, 11/29/2024 HIB Vaccines Aged Out No longer eligi ble based on patient's age to complete this topic Hepatitis A Vaccines Aged Out No long er eligible based on patient's age to complete this topic IPV Vaccines Aged Out No longer eligi ble based on patient's age to complete this topic Meningococcal B Vaccine Aged Out No l onger eligible based on patient's age to complete [...] Procedure Name Priority Date/Time Associated Diagnosis Comments MA INSERTION INTRAUTERINE DEVICE IUD Routine 05/30/2025 11:30 AM EDT Encounter for IUD insertion POCT , URINE Routine 05/30/2025 11:13 AM EDT Encounter for IUD insertion POCT , URINE Routine 05/01/2025 11:00 AM EDT Encounter for IUD insertion MA INSERTION INTRAUTERINE DEVICE IUD Routine 05/01/2025 11:00 AM EDT Encounter for IUD insertion XR ABDOMEN 2V+ Routine 04/24/2025 11:39 AM EDT HIV 1/2 ANTIGEN/ANTIBODY, FOURTH GENERATION W/RFL Routine 12/19/2024 8:44 AM EDT Neutropenia associated with infection (CMS/HCC) HM PAP/HPV Routine 05/07/2024 from Last 3 Months or Most Recently Relevant to Health Maintenance Results * MA INSERTION INTRAUTERINE DEVICE IUD (05/30/2025 11:30 AM EDT) Barbi Aguilar CNM - 05/30/2025 11:30 AM EDT Barbi Monroe CNM 05/30/2025 11:51 AM IUD Management Performed by: Barbi Monroe CNM Authorized by: Barbi Monroe CNM Procedure: IUD insertion Consent obtained by patient, parent, or legal power of balance truer - including discussion of procedure risks and benefits, patient questions answered, and patient education provided: yes risk: reasonably certain the patient is not Pre-Medications: Misoprostol 200mcg buccally in each cheek Date/Time of Insertion: 05/30/2025 11:20 AM Immediately prior to procedure a time out was called: yes Pelvic exam performed: yes Speculum placed in vagina: yes Cervix cleaned and prepped: yes Tenaculum/Allis/Ring Forceps applied to cervix: yes (anterior lip) Anesthesia used: yes Local anesthesia: Topical Local anesthetic: Lidocaine Anesthetic strength (%): 2 Volume (mL): 3 Uterus sound depth (cm): 4 Cervix manually dilated: no IUD inserted with no complications: no Complications: Unable to pass through interal os, procedure discontinued Patient tolerated procedure well: yes Estimated blood loss (mL): 20 Insertion comments: Bleeding controlled with scopettes us Barbi Monroe CNM IN CLINIC/BEDSIDE ORDERAB LES Final Result * POCT , urine manually resulted (05/30/2025 11:13 AM EDT) Only the most recent of2 resultswithin the time period is included. Preg Test, Ur Negative Negative, Indeterminate, None Detected, Invalid, Specimen unsatisfactory for evaluation, Weakly Positive, 2+ QC Media Lot # [id number] Lot# Expiration Date [id number] Urine 05/30/2025 11:1 3 AM EDT Barbi Monroe CNM POINT OF CARE TEST ENTER/ EDIT ORDERABLES Final Result * MA INSERTION INTRAUTERINE DEVICE IUD (05/01/2025 11:00 AM EDT) Narrative Barbi Monroe CNM - 05/01/2025 11:00 AM EDT Barbi Monroe CNM 05/01/2025 12:28 PM IUD Management Performed by: Emi Tompkins CNP Authorized by: Emi Tompkins CNP Procedure: IUD insertion Consent obtained by patient, parent, or legal power of balance truer - including discussion of procedure risks and benefits, patient questions answered, and patient education provided: yes risk: reasonably certain the patient is not Immediately prior to procedure a time out was called: yes Pelvic exam performed: yes Speculum placed in vagina: yes Cervix cleaned and prepped: yes Tenaculum/Allis/Ring Forceps applied to cervix: yes Anesthesia used: yes Local anesthesia: Topical Local anesthetic: Lidocaine Anesthetic strength (%): 2 Volume (mL): 4 Uterus sound depth (cm): 4 Cervix manually dilated: no IUD inserted with no complications: no Complications: Unable to sound past internal Os, tenaculum repositioned from anteorior to posterior lip, os finder used but still unable to sound past 4 cm Patient tolerated procedure well: yes Insertion comments: Tenaculum removed, procedure discontinued due to patient's need to void, bleeding controlled with scopette, reviewed options to re-attempt insertion today or to return at later date with misoprostol and ideally while menstruating. She opted for second option. Emi Tompkins CNP IN CLINIC/BEDSIDE ORDERAB LES Final Result * XR Abdomen 2 View minimum (04/24/2025 11:39 AM EDT) Anatomical Region Laterality Modality Abdomen Radiographic Laurence ging 04/24/2025 11:3 9 AM EDT Narrative 04/24/2025 12:55 PM EDT [address] [address] XRay Report Signed Patient: Angela Ceballos MR#: [id number] : 1995 Acct:[id number] Age/Sex: 30 / F ADM Date: 04/24/25 Loc: [facility] Attending Dr: Terra Enriquez ROBOTICS SOFTWARE ENGINEER Ordering Physician: Terra Enriquez ROBOTICS SOFTWARE ENGINEER Date of Service: 04/24/25 Procedure(s): XR abdomen min 2V Accession Number(s): [id number] cc: Kat Nguyen MD; Terra Enriquez ROBOTICS SOFTWARE ENGINEER EXAMINATION: XR ABDOMEN 2 VIEWS SUPINE ERECT HISTORY: CONSTIPATION COMPARISON: There are no prior studies available for comparison. FINDINGS: Supine and upright views of the abdomen are submitted. The bowel gas pattern is unremarkable, without evidence of mechanical obstruction. There is no free intraperitoneal gas. There is a large amount of stool throughout the colon. No abnormal calcifications are identified. There are no abnormal soft tissue masses. The bones are intact. XR/XR abdomen min 2V IMPRESSION: Large amount of stool throughout the colon. Electronically signed by: Charly Martines MD 04/24/2025 12:53 PM EDT Dictated By: Charly Martines MD Signed By: <Electronically signed by Charly Martines MD in OV> 04/24/25 1253 DD/ 1139 TD/TT: 04/24/25 1200 Inside Sales Executive: Procedure Note Donotuseinterpreter, Image - 04/24/2025 [place] [address] XRay Report Signed Patient: Angela Ceballos MR#: [id number] : 1995Acct:[id number] Age/Sex: 30 / FADM Date: 04/24/25 Loc: [facility] Attending Dr: Terra Enriquez ROBOTICS SOFTWARE ENGINEER Ordering Physician: Terra Enriquez ROBOTICS SOFTWARE ENGINEER Date of Service: 04/24/25 Procedure(s): XR abdomen min 2V Accession Number(s): [id number] cc: Kat Nguyen MD; Terra Enriquez ROBOTICS SOFTWARE ENGINEER EXAMINATION: XR ABDOMEN 2 VIEWS SUPINE ERECT HISTORY: CONSTIPATION COMPARISON: There are no prior studies available for comparison. FINDINGS: Supine and upright views of the abdomen are submitted. The bowel gas pattern is unremarkable, without evidence of mechanical obstruction. There is no free intraperitoneal gas. There is a large amount of stool throughout the colon. No abnormal calcifications are identified. There are no abnormal soft tissue masses. The bones are intact. XR/XR abdomen min 2V IMPRESSION: Large amount of stool throughout the colon. Electronically signed by: Charly Martines MD 04/24/2025 12:53 PM EDT RP Dictated By: Charly Martines MD Signed By: <Electronically signed by Charly Martines MD in OV> 04/24/25 1253 DD/ 1139 TD/TT: 04/24/25 1200 Inside Sales Executive: us Terra Enriquez NP IMG XR PROCEDURES Final Result * HIV-1/2 Antigen and Antibodies, Fourth Generation, with Reflexes (12/19/2024 8:44 AM EDT) Pathologist [facility] HIV AB/AG Nonreactive Nonreactive [facility] Comment:HIV-1 p24 Ag and/or HIV-1/HIV-2 Ab not detected.A test result that is nonreactive does not exclude thepossibility of exposure to or infection with HIV-1 and/orHIV-2. Nonreactive results in this assay for individualswith prior exposure to HIV-1 and/or HIV-2 may be due toantigen and antibody levels that are below the limit ofdetection of this assay.The Divshot HIV Ag/Ab Combo assay result andsupplemental assay results should be interpreted inconjunction with the patient's clinical presentation,history and other laboratory results. If the results areinconsistent with clinical evidence, additional testing issuggested to confirm the result. Blood Venous blood specimen / Unknown 12/19/2024 8:44 AM EDT 12/19/2024 11:25 AM EDT us Kat Nguyen MD LAB BLOOD ORDERABLES Fin al Result [facility] [address] [place] [phone] * HM PAP/HPV (05/07/2024) Pap Smear 1. NILM 1. NILM HPV Undetected Undetected, Indeterminate , Quantitative, Not Detected Kat Nguyen MD HEALTH MAINTENANCE Final Result from Last 3 Months or Most Recently Relevant to Health Maintenance Insurance [employer] Care Teams Car Servicer Relationship Specialty Start Date End Date Kat Nguyen MD [address] [place] [phone] PCP - General Internal Medicine 10/16/24
--- OUTSIDE RECORDS SUMMARY | 2025-06-20 16:28 | XMS_ITS | Encounter Summary ---
Author Organization [employer] Address [address] [place] [address] Care Team Providers Care Pan Helper Name Role Phone Kat Nguyen MD Primary Care Provider + Encounter Details Date Type Department Care Team ([facility] st Contact Info) Description 05/31/2025 Telephone [facility] [address], [place] [phone] Terra Enriquez NP [address] [place] [address] Social History Tobacco Use Types Packs/Day Years Used Date Smoking Tobacco: Never Passive Smoke Exposure: Never Smokeless Tobacco: Never Alcohol Use Standard Drinks/Week Comments Never 0 (1 standard drink = 0.6 oz pur e alcohol) Housing Stability Answer Date Recorded What is your housing situation today? I do not have housing (Staying with others, in a hotel, in a chcf, living outside on the street, on a [...] as of this encounter Plan of Treatment Not on file documented as of this encounter Visit Diagnoses Not on filedocumented in this encounter Care Teams Pan Helper Relationship Specialty Start Date End Date Kat Nguyen MD [address] [place] [phone] PCP - General Internal Medicine 10/16/24 documented as of this encounter
--- OUTSIDE RECORDS SUMMARY | 2025-06-20 16:28 | XMS_ITS | Encounter Summary ---
Author Organization [employer] Address [address] [place] [address] Care Team Providers Care Knock Up Assembler Name Role Phone Kat Nguyen MD Primary Care Provider + Reason for Visit * Reason Onset Date Comments Med Refill 12/24/2024 Encounter Details Date Type Department Care Team (Late st Contact Info) Description 12/24/2024 Refill [facility] [address] [place], [place] [phone] Kat Nguyen MD [address] [place], [place] [phone] Social History Tobacco Use Types Packs/Day Years Used Date Smoking Tobacco: Never Passive Smoke Exposure: Never Smokeless Tobacco: Never Alcohol Use Standard Drinks/Week Comments Never 0 (1 standard drink = 0.6 oz pur e alcohol) Housing Stability Answer Date Recorded What is your housing situation today? I do not have housing (Staying with others, in a hotel, in a residential, living outside on the street, on a [...] on filedocumented in this encounter Care Teams Knock Up Assembler Relationship Specialty Start Date End Date Kat Nguyen MD [address] [place] [phone] PCP - General Internal Medicine 10/16/24 documented as of this encounter
== END 2025-06-20 16:10 | disposition home or self-care (01) ==
LOC: HO.HGI 15:03
PROVIDERS: PCP Internal Medicine; Visit Provider Nurse Practitioner Family
DX: K59.00 Constipation, unspecified (principal); R63.4 Abnormal weight loss
CPT/HCPCS: 99204

== ENCOUNTER → 2025-06-20 15:03 | Outpatient (BNVA) | payer MEDICAID, SELFPAY | PROVIDERS: PCP Internal Medicine; Visit Provider Nurse Practitioner Family | DX: R63.4 Abnormal weight loss (principal); K59.00 Constipation, unspecified | CPT/HCPCS: 99212 ==

== ENCOUNTER 2025-06-28 08:42 | Outpatient (REF) | payer MEDICAID, SELFPAY ==
--- OUTSIDE RECORDS SUMMARY | 2025-06-28 09:01 | XMS_ITS | Encounter Summary ---
Author Organization [employer] Address [address] [place] [address] Care Team Providers Care Jd Edwards Name Role Phone Kat Nguyen MD Primary Care Provider + Reason for Visit * Reason Onset Date Comments Med Refill 12/24/2024 Encounter Details Date Type Department Care Team (Late st Contact Info) Description 12/24/2024 Refill [facility] [address] [place], [place] [phone] Kat Nguyen MD [address] [place], [place] [phone] Social History Tobacco Use Types Packs/Day Years [...] on filedocumented in this encounter Care Teams Jd Edwards Relationship Specialty Start Date End Date Kat Nguyen MD [address] [place] [phone] PCP - General Internal Medicine 10/16/24 documented as of this encounter
--- OUTSIDE RECORDS SUMMARY | 2025-06-28 09:01 | XMS_ITS | Encounter Summary ---
Author Organization [employer] Address [address] [place] [address] Care Team Providers Care Coremaker Bench Name Role Phone Kat Nguyen MD Primary Care Provider + Encounter Details Date Type Department Care Team ([facility] st Contact Info) Description 05/31/[address] [facility] [address] [place], [place] [phone] Terra Enriquez NP [address] [place] [address] Social History Tobacco Use Types Packs/Day Years Used Date Smoking Tobacco: Never Passive Smoke Exposure: Never Smokeless Tobacco: Never Alcohol Use Standard Drinks/Week Comments Never 0 (1 standard drink = 0.6 oz pur e alcohol) Housing Stability Answer Date Recorded What is your housing situation today? I do not have housing (Staying with others, in a hotel, in a fci, living outside on the street, on a [...] on filedocumented in this encounter Care Teams Coremaker Bench Relationship Specialty Start Date End Date Kat Nguyen MD [address] [place] [phone] PCP - General Internal Medicine 10/16/24 documented as of this encounter
--- OUTSIDE RECORDS SUMMARY | 2025-06-28 09:01 | XMS_ITS | Clinical Summary ---
Author Organization [employer] Address [address] [place] [address] Care Team Providers Care K 12 School Professional Name Role Phone Kat Nguyen MD Primary [...] mouth Once per day. 30 tablet 02/25/2025 6 Active famotidine (Pepcid) 20 MG tablet Take 1 tablet (20 mg) by mouth 2 times daily. 180 tablet 04/26/2025 6 Active bisacodyl (Dulcolax) 5 MG EC tablet Take 1 tablet (5 mg) by mouth if needed each day for constipation . Do not crush, chew, or split. 90 tablet 04/26/2025 Active miSOPROStol (Cytotec) 200 MCG tabletIndicatio ns:Encounter for IUD insertion Take 1 tablet in each cheek 1 hour before appointment. 2 tablet 05/01/2025 Active Hospital, Clinic, or Other Facility Administered Medication [...] aware of contraceptive options after seen by insurance actuary, she wants IUD (Mirena) insertion I will refer to insurance actuary for Mirena insertion We discussed about using [...] wants Nexplanon replaced by IUD. Refer to [facility]. Order STI testing. Assessment & Plan (10/16/2024 [...] Type Department Care Team Description 06/07/2025 Telephone [facility] [address] [place] [phone] Kat Nguyen MD Referral Request 05/31/2025 Telephone [facility] [address] [place] [phone] Terra Enriquez NP 05/30/2025 11:30 AM EDT Office Visit [address] [address] Barbi Monroe CNM Breast pain, right (Primary Dx); Encounter for IUD insertion; Sterilization consult 05/30/2025 Travel 05/29/2025 Telephone [facility] [address] [place] [phone] Margot Andrews MA 05/17/2025 Telephone [facility] [address] [place] [address] Kat Nguyen MD Referral 05/01/2025 11:00 AM EDT Procedure Visit [address] [address] Emi Tompkins CNP Encounter for IUD insertion (Primary Dx); Encounter for emergency contraception 05/01/2025 Travel 04/30/[address] [address] Emi Tompkins CNP Chart Prep 04/26/2025 Refill [facility] [address] [place] [address] Kat Nguyen MD 04/25/2025 Results Follow-Up [address] [address] Marcela Mueller, CJ XR Abdomen 2 View minimum 04/24/2025 11:15 AM EDT Office Visit [address] [address] Terra Enriquez NP Slow transit constipation (Primary Dx); Gastroesophageal reflux disease without esophagitis; Chronic low back pain with sciatica, sciatica laterality unspecified, unspecified back pain laterality; Dysmenorrhea 04/24/2025 Orders Only [facility] [address] [place] [phone] Terra Enriquez NP 04/24/2025 Telephone [facility] [address] [place] [address] Kat Nguyen MD Change PCP (PT requesting to change PCP to Terra Enriquez due to feeling more comfortable. Pt explains she always feels rushed during visits and rarely ever gets seen. ) 04/24/2025 Travel 04/19/[address] [facility] [address] [place] [address] Kat Nguyen MD 04/18/[address] [facility] [address] [place] [address] Kat Nguyen MD Nurse Triage from Last 3 [...] Procedure Name Priority Date/Time Associated Diagnosis Comments [place] INSERTION INTRAUTERINE DEVICE IUD Routine 05/30/2025 11:30 AM EDT Encounter for IUD insertion POCT , URINE Routine 05/30/2025 11:13 AM EDT Encounter for IUD insertion POCT , URINE Routine 05/01/2025 11:00 AM EDT Encounter for IUD insertion IL INSERTION INTRAUTERINE DEVICE IUD Routine 05/01/2025 11:00 AM EDT Encounter for IUD insertion XR ABDOMEN 2V+ Routine 04/24/2025 11:39 AM EDT HIV 1/2 ANTIGEN/ANTIBODY, FOURTH GENERATION W/RFL Routine 12/19/2024 8:44 AM EDT Neutropenia associated with infection (CMS/HCC) HM PAP/HPV Routine 05/07/2024 from Last 3 Months or Most Recently Relevant to Health Maintenance Results * IL INSERTION INTRAUTERINE DEVICE IUD (05/30/2025 11:30 AM EDT) Narrative Barbi Monroe CNM - 05/30/2025 11:30 AM EDT Barbi Monroe CNM 05/30/2025 11:51 AM IUD Management Performed by: Barbi Monroe CNM Authorized by: Barbi Monroe CNM Procedure: IUD insertion Consent obtained by patient, parent, or legal power of mergers and acquisitions attorney - including discussion of procedure risks and [...] 20 Insertion comments: Bleeding controlled with scopettes Barbi Monroe CNM IN CLINIC/BEDSIDE ORDERAB LES Final Result * POCT , urine manually resulted (05/30/2025 11:13 AM EDT) Only the most recent of2 resultswithin the time period is included. Preg Test, Ur Negative Negative, Indeterminate, None Detected, Invalid, Specimen unsatisfactory for evaluation, Weakly Positive, 2+ QC Media Lot # [id number] Lot# Expiration Date [id number] Urine 05/30/2025 11:1 3 AM EDT Barbi Monroe CNM POINT OF CARE TEST ENTER/ EDIT ORDERABLES Final Result * IL INSERTION INTRAUTERINE DEVICE IUD (05/01/2025 11:00 AM EDT) Barbi Aguilar CNM - 05/01/2025 11:00 AM EDT Barbi Monroe CNM 05/01/2025 12:28 PM IUD Management Performed by: Emi Tompkins CNP Authorized by: Emi Tompkins CNP Procedure: IUD insertion Consent obtained by patient, parent, or legal power of mergers and acquisitions attorney - including discussion of procedure risks and [...] AM EDT Narrative 04/24/2025 12:55 PM EDT [address] [address] XRay Report Signed Patient: Angela Ceballos MR#: [id number] : 1995 Acct:[id number] Age/Sex: 30 / F ADM Date: 04/24/25 Loc: .[facility] Attending Dr: Terra Enriquez NP Ordering Physician: Terra Enriquez NP Date of Service: 04/24/25 Procedure(s): XR abdomen min 2V Accession Number(s): [id number] cc: Kat Nguyen MD; Terra Enriquez SOCIAL WORKER DELINQUENCY PREVENTION EXAMINATION: XR ABDOMEN 2 VIEWS SUPINE ERECT [...] 04/24/25 1253 DD/ 1139 TD/TT: 04/24/25 1200 Shipfitter Apprentice: Procedure Note Donotuseinterpreter, Image - 04/24/[address] [address] XRay Report Signed Patient: Angela Ceballos MR#: [id number] : 1995Acct:[id number] Age/Sex: 30 / FADM Date: 04/24/25 Loc: [facility] Attending Dr: Terra Enriquez SOCIAL WORKER DELINQUENCY PREVENTION Ordering Physician: Terra Enriquez NP Date of Service: 04/24/25 Procedure(s): XR abdomen min 2V Accession Number(s): [id number] cc: Kat Nguyen MD; Terra Enriquez SOCIAL WORKER DELINQUENCY PREVENTION EXAMINATION: XR ABDOMEN 2 VIEWS SUPINE ERECT [...] 04/24/25 1253 DD/ 1139 TD/TT: 04/24/25 1200 Shipfitter Apprentice: us Terra Enriquez SOCIAL WORKER DELINQUENCY PREVENTION IMG XR PROCEDURES Final Result * HIV-1/2 Antigen and Antibodies, Fourth Generation, with Reflexes (12/19/2024 8:44 AM EDT) HIV AB/AG Nonreactive Nonreactive [facility] Comment:HIV-1 p24 Ag and/or HIV-1/HIV-2 Ab not detected.A test result that is nonreactive does not exclude thepossibility of exposure to or infection with HIV-1 and/orHIV-2. Nonreactive results in this assay for individualswith prior exposure to HIV-1 and/or HIV-2 may be due toantigen and antibody levels that are below the limit ofdetection of this assay.The cheerappniMADS HIV Ag/Ab Combo assay result andsupplemental assay results should be interpreted inconjunction with the patient's clinical presentation,history and other laboratory results. If the results areinconsistent with clinical evidence, additional testing issuggested to confirm the result. Blood Venous blood specimen / Unknown 12/19/2024 8:44 AM EDT 12/19/2024 11:25 AM EDT us Kat Nguyen MD LAB BLOOD ORDERABLES Fin al Result [facility] [address] [place] [phone] * HM PAP/HPV (05/07/2024) Pap Smear 1. NILM 1. NILM HPV Undetected Undetected, Indeterminate , Quantitative, Not Detected us Kat Nguyen MD HEALTH MAINTENANCE Final Result from Last 3 Months or Most Recently Relevant to Health Maintenance [facility] Care Teams [employer] Professional Relationship Specialty Start Date End Date Kat Nguyen MD [address] [place] [address] PCP - General Internal Medicine 10/16/24
[2025-06-29 08:30] LABS: HBS Num1 > 1000.00 mIU/mL (0-7.99); HBc Num1 0.10 S/CO (0.00-0.79); HBsAGNum1 0.55 S/CO (0.00-0.99); HIV Num 1 0.07 S/CO (0.00-0.99); Hepatitis A Antibody IgM 0.42 Index (0-0.79); Hepatitis B Surface Antigen Negative (Negative); ~HepC Num1 0.12 S/CO (0.00-0.79); ~Hepatitis A Antibody IgM Nonreactive (Nonreactive); ~Hepatitis B Surface Antibody REACTIVE (Nonreactive); ~Hepatitis C Antibody Nonreactive (Nonreactive)
== END 2025-06-28 08:43 | disposition home or self-care (01) ==
LOC: HO.HHCL 08:42
PROVIDERS: PCP Internal Medicine; Visit Provider Nurse Practitioner Family
DX: Z11.59 Encounter for screening for other viral diseases (principal); Z11.4 Encounter for screening for human immunodeficiency virus [HIV]; K59.00 Constipation, unspecified
CPT/HCPCS: 36415; 86364; 86704; 86706; 86709; 86803; 87340; 87389

== ENCOUNTER 2025-07-25 09:37 | Outpatient (AMB) | payer MEDICAID, SELFPAY ==
[2025-07-25 09:40] VITALS: BP 108/65; PULSE 61; BMI 22.1
--- NOTE | 2025-07-25 09:40 | A.OFFVIS_ITS ---
Vital Signs 07/25/25 09:40 Height 5 ft 7 in Weight 141 lb 1.533 oz BMI 22.1 BP 108/65 Blood Pressure Location Lt brachial Position Sitting Pulse 61 Intake Visit Reasons: constipation Intake Note: Angela presents in the office as a follow up for constipation. CC: She states that she has pains in the stomach with constipation. Weblogic Developer Required: Yes Weblogic Developer Name: Evelio [id number] Allergies No Known Allergies Allergy (Verified 07/25/25 09:44) Medication List - Last Reconciled 07/25/25 by Bronwyn Schuster CNP ascorbate calcium (vitamin C) 500 mg PO DAILY docusate sodium 200 mg (2 x 100 mg) PO BEDTIME fluticasone propionate 50 mcg/actuation 1 spray intranasal DAILY lactulose 20 grams (30 mL) PO DAILY magnesium citrate 500 mg PO DAILY PRN sennosides-docusate sodium 8.6-50 mg (Senexon-S) 2 tab-caps PO HPI HPI constipation: Details: Patient is a 30-year-old female with PMH of anxiety and adjustment disorder. F/u for chronic constipation and prior unintentional weight loss. Since last appt, pt reports recurrence of constipation symptoms despite continued use of lactulose (15 mL qd), and laxative-stool softener. Initially, BMs improved to daily/every other day, but now having no BMs x several days with increased bloating and sensation of incomplete evacuation. Mild, persistent epigastric discomfort noted but denies associated N/V, heartburn/dysphagia or alarm symptoms. Reports difficulty incorporating fiber into diet, decreased water intake due to cold weather, and reliance on non-water hydrating beverages. No hospitalizations, urgent care visits, or acute GI flares. Weight remains stable per home and office measures. Compliance with recommended meds confirmed, but occasional missed doses. COUNTS INCLUDE 234 BEDS AT THE [facility] Medical History (Updated 07/25/25 @ 11:31 by Bronwyn Schuster CNP) Epigastric pain Weight loss Constipation Surgical History Hx of vaginal surgery Hx of section Family History Mother Throat cancer Social History Household Members: Family Alcohol intake: never Patient Tobacco Use Status: Never used Tobacco Review of Systems Const Reports as per [facility] ENT Reports as per [facility] Card Reports as per [facility] Resp Reports as per [facility] GI Reports as per [facility] Reports as per [facility] Physical Exam Vital Signs: Last Vital Signs Pulse 61 07/25/25 09:40 BP 108/65 07/25/25 09:40 BMI result Body Mass Index 22.1 Const General: healthy appearing, no acute distress and well developed Nutritional Appearance: average body habitus Orientation/consciousness: patient oriented x3 HEENT Head: Yes normal to inspection, Yes normocephalic and Yes atraumatic Face and sinus: Yes normal facial exam Eyes General: appearance normal, both eyes and all related structures Neck Neck: Yes normal visual inspection Resp Effort & Inspection: normal respiratory effort, able to speak in complete sentences, no tracheal deviation and symmetric chest movement Cardio Jugular venous distension: no JVD Heart sounds: Murmur heart sound present GI Inspection: Yes normal to inspection and No distended Palpation (GI): Soft to palpation, not firm, nontender and No hepatosplenomegaly present Auscultation: normal bowel sounds Neuro General: patient oriented x3 Gait exam (Neuro): Normal gait present Psych Appearance: grossly normal Mental Status: mental status grossly normal Speech and movement: Normal speech and movement present Affect: normal affect Attitude: cooperative Thought process: Normal thought process present Thought content: Normal thought content present Insight: Good insight present (Psych) Judgement: Good judgement present (Psych) Assessment & Plan Assessment & Plan (1) Constipation: Code(s): K59.00 - Constipation, unspecified Category: Medical Qualifiers: Constipation type: unspecified constipation type Qualified Code(s): K59.00 - Constipation, unspecified Plan: Worsening?refractory to initial laxative regimen, no BM x several days, increased bloating/incomplete evacuation. - Symptom recurrence suggests underdosing and/or insufficient adjunctive dietary/lifestyle modifications. Large stool burden persists on 04/2025 imaging. Additional testing: - None indicated at this time?recent w/u negative, will monitor response to intensified regimen and dietary change. Medications: - Lactulose: increase dose to 30 mL PO qd. - Docusate (stool softener): continue 2 tabs qhs. - Magnesium supplement: continue OTC as prior. - Considerations: No current indication for milk of magnesia or alternative agents; monitor for electrolyte disturbances and stool frequency/character. Lifestyle Recommendations: - Reinforce high-fiber foods: encourage daily intake of fruits, vegetables, beans, plantains, bananas, and whole grains. - Hydration: Target increased water intake?suggest heated water if preferred due to cold; limit reliance on electrolyte drinks with low/no sugar. - Provided dietary education and list of fiber-rich food options. Referrals / Coordination of Care: - None at this time. Follow-Up Plan: - RTC in 3 months for reassessment of bowel habits, response to medication titration, and adherence to dietary/hydration goals. - Advise pt to call earlier for increasing pain, obstipation, alarm sx (GI bleed, vomiting), or inadequate response to current plan. (2) Weight loss: Code(s): R63.4 - Abnormal weight loss Category: Medical Plan: Weight now stable per pt report and in-office measurement. Initial w/u (hepatitis, HIV, celiac) negative; no evidence of ongoing weight loss or secondary etiology. Additional testing: - None indicated at this time; will continue to monitor weight trends. Medications: - No changes. Lifestyle Recommendations: - Continue to monitor dietary intake and maintain adequate nutrition. Referrals / Coordination of Care: - None at this time. Follow-Up Plan: - Monitor weight at each visit; advise pt to report any new or recurrent weight loss. (3) Epigastric pain: Code(s): R10.13 - Epigastric pain Category: Medical Plan: Mild, persistent; not clearly related to meals, not associated with other dyspeptic features or alarm sx. Normal PE today. - Most likely secondary to chronic stool retention and bloating. - Will reassess following GI motility improvement and symptom-directed constipation tx. Additional testing: - None at this time. Medications: - No changes. Lifestyle Recommendations: - Will monitor for response to improved bowel regimen. Referrals / Coordination of Care: - None at this time. Follow-Up Plan: - Reassess with next scheduled visit unless sx escalate. Plan Follow-up 3 months or sooner as needed Time: I spent a total of 24 minutes on the date of encounter which includes: Preparing to see the patient (reviewed previous documentation, test results and medical history) Performing a medically appropriate exam and/or evaluation Ordering medications, tests, and procedures Documenting clinical information in the health record Medications: Changed From lactulose (15 mL) Take 15-30mL daily for constipation. 3,785 mL 0RF constipation To lactulose Take 30mL daily for constipation 20 grams (30 mL) PO DAILY 3,785 mL 0RF constipation Coding Level of Care Code Established Pt Est Pt Level 3 (73039) Patient Type Established Diagnoses Constipation, unspecified constipation type K59.00 Constipation type: unspecified constipation type Weight loss R63.4 Epigastric pain R10.13
--- OUTSIDE RECORDS SUMMARY | 2025-07-25 10:50 | XMS_ITS | Encounter Summary ---
Author Organization [employer] Address [address] [place] [address] Care Team Providers Care Peanut Separator Name Role Phone Kat Nguyen MD Primary Care Provider + Encounter Details Date Type Department Care Team ([facility] st Contact Info) Description 05/31/2025 Telephone [facility] [address] [place], [place] [phone] Terra Enriquez NP [address] [place] [address] Social History Tobacco Use Types Packs/Day Years Used Date Smoking Tobacco: Never Passive Smoke Exposure: Never Smokeless Tobacco: Never Alcohol Use Standard Drinks/Week Comments Never 0 (1 standard drink = 0.6 oz pur e alcohol) Housing Stability Answer Date Recorded What is your housing situation today? I do not have housing (Staying with others, in a hotel, in a intermediate, living outside on the street, on a [...] on filedocumented in this encounter Care Teams Peanut Separator Relationship Specialty Start Date End Date Kat Nguyen MD [address] [place] [phone] PCP - General Internal Medicine 10/16/24 documented as of this encounter
--- OUTSIDE RECORDS SUMMARY | 2025-07-25 10:50 | XMS_ITS | Encounter Summary ---
Author Organization [employer] Address [address] [place] [address] Care Team Providers Care Sales Professional Name Role Phone Kat Nguyen MD Primary Care Provider + Reason for Visit * Reason Onset Date Comments Med Refill 12/24/2024 Encounter Details Date Type Department Care Team (Late st Contact Info) Description 12/24/2024 Refill [facility] [address] [place], [place] [phone] Kat Nguyen MD [address] [place], [place] [phone] Social History Tobacco Use Types Packs/Day Years Used Date Smoking Tobacco: Never Passive Smoke Exposure: Never Smokeless Tobacco: Never Alcohol Use Standard Drinks/Week Comments Never 0 (1 standard drink = 0.6 oz pur e alcohol) Housing Stability Answer Date Recorded What is your housing situation today? I do not have housing (Staying with others, in a hotel, in a halfway, living outside on the street, on a [...] on filedocumented in this encounter Care Teams Sales Professional Relationship Specialty Start Date End Date Kat Nguyen MD [address] [place] [phone] PCP - General Internal Medicine 10/16/24 documented as of this encounter
--- OUTSIDE RECORDS SUMMARY | 2025-07-25 10:50 | XMS_ITS | Encounter Summary ---
Author Organization [employer] Address [address] [place] [address] Care Team Providers Care Broadcast Maintenance Engineer Name Role Phone Kat Nguyen MD Primary Care Provider + Encounter Details Date Type Department Care Team (Latest Contact Info) Description 07/03/2025 Results Follow-Up [facility] [address] [place], [place] [phone] Kat Nguyen MD [address] [place] [address] Hepatitis Panel, General, HIV-1/2 Antigen and Antibodies, Fourth Generation, with Reflexes, Tissue Transglutaminase Antibody, IgA Social History Tobacco Use Types Packs/Day Years [...] as of this encounter Miscellaneous Notes * Result Encounter Note - Kat Nguyen MD - 07/03/2025 7:58 PM EDT Labs on 07/03/2025 showed hepatitis B immunity. Please update care gaps documented in this encounter Plan of Treatment Not on file documented as of this encounter Visit Diagnoses Not on filedocumented in this encounter Care Teams Broadcast Maintenance Engineer Relationship Specialty Start Date End Date Kat Nguyen MD [address] [place] [phone] PCP - General Internal Medicine 10/16/24 documented as of this encounter
--- OUTSIDE RECORDS SUMMARY | 2025-07-25 10:50 | XMS_ITS | Clinical Summary ---
Author Organization [employer] Address [address] [facility] [address] [place] [address] Care Team Providers Care Channel Marketing Program Manager Name Role Phone Kat Nguyen MD Primary Care Provider + Allergies No known active allergies Medications cyclobenzaprin e (Flexeril) 10 MG tablet Take 1 tablet (10 mg) by mouth at bedtime for 10 days. 10 tablet 02/26/20 25 Active meloxicam (Mobic) 15 MG tablet Take 1 tablet (15 mg) by mouth Once per day. 30 tablet 02/26/20 25 026 Active famotidine (Pepcid) 20 MG tablet Take 1 tablet (20 mg) by mouth 2 times daily. 180 tablet 04/26/20 25 026 Active bisacodyl (Dulcolax) 5 MG EC tablet Take 1 tablet (5 mg) by mouth if needed each day for constipatio n. Do not crush, chew, or split. 90 tablet 04/26/20 25 Active miSOPROStol (Cytotec) 200 MCG tabletIndicati ons:Encounter for IUD insertion Take 1 tablet in each cheek 1 hour before appointment . 2 tablet 05/01/20 25 Active fluticasone (Flonase) 50 MCG/ACT nasal spray SPRAY 1 SPRAY IN EACH NOSTRIL ONCE DAILY 48 g 07/18/20 25 Active fluticasone (Flonase) 50 MCG/ACT nasal spray INSTILL 1 SPRAY IN EACH NOSTRIL ONCE DAILY 48 g 01/09/20 25 025 Discontinued(Re order (will not trigger notification to Pharmacy)) Hospital, Clinic, or Other Facility Administered Medication [...] aware of contraceptive options after seen by passenger service manager, she wants IUD (Mirena) insertion I will refer to passenger service manager for Mirena insertion We discussed about using [...] wants Nexplanon replaced by IUD. Refer to SERVICE OPERATOR. Order STI testing. Assessment & Plan (10/16/2024 [...] Encounters Date Type Department Care Team Description 07/18/[address] [facility] [address] [place] [phone] Kat Nguyen MD 07/03/2025 Results Follow-Up [address] [address] Kat Nguyen MD Hepatitis Panel, General, HIV-1/2 Antigen and Antibodies, Fourth Generation, with Reflexes, Tissue Transglutaminase Antibody, IgA 06/28/2025 Orders Only GENERIC EXTERNAL DATA DEPARTMENT Provider, Generic External Data 06/07/[address] [address] Kat Nguyen MD Referral Request 05/31/[address] [address] Terra Enriquez NP 05/30/2025 11:30 AM EDT Office Visit [address] [address] Barbi Monroe CNM Breast pain, right (Primary Dx); Encounter for IUD insertion; Sterilization consult 05/30/2025 Travel 05/29/[address] [facility] [address] [place] [phone] Margot Andrews MA 05/17/[address] [address] Kat Nguyen MD Referral 05/01/2025 11:00 AM EDT Procedure Visit [address] [address] Emi Tompkins CNP Encounter for IUD insertion (Primary Dx); Encounter for emergency contraception 05/01/2025 Travel 04/30/[address] [address] Emi Tompkins CNP Chart Prep 04/26/[address] [facility] [address] [place] [address] Kat Nguyen MD 04/25/2025 Results Follow-Up [facility] [address] [place] [phone] Marcela Mueller RN XR Abdomen 2 View minimum 04/24/2025 11:15 AM EDT Office Visit [address] [address] Terra Enriquez NP Slow transit constipation (Primary Dx); Gastroesophageal reflux disease without esophagitis; Chronic low back pain with sciatica, sciatica laterality unspecified, unspecified back pain laterality; Dysmenorrhea 04/24/2025 Orders Only [address] [address] Terra Enriquez NP 04/24/[address] [address] Kat Nguyen MD Change PCP (PT requesting to change PCP to Terra Enriquez due to feeling more comfortable. Pt explains she always feels rushed during visits and rarely ever gets seen. ) 04/24/2025 Travel from Last 3 Months Social History Tobacco [...] with others, in a hotel, in a custodial, living outside on the street, on a [...] HPV Vaccines (1 - 3-dose series) 2009 DTaP/Tdap/Td Vaccines (1 - Tdap) 2013 Pneumococcal Vaccine: Pediatrics (0 to 5 [...] 1-dose 75+ series) 2069 HIV Screening Completed 06/28/2025, 12/19/2024, 11/29/2024 Hepatitis C Screening Completed 06/28/2025 HIB Vaccines Aged Out No longer eligi ble based on patient's age to complete this topic Hepatitis A Vaccines Aged Out No long er eligible based on patient's age to complete this topic Hepatitis B Vaccines Discontinued IPV Vaccines Aged Out No longer eligi [...] Procedure Name Priority Date/Time Associated Diagnosis Comments TISSUE TRANSGLUTAMINASE AB, IGA Routine 06/28/2025 9:49 AM EDT HIV 1/2 ANTIGEN/ANTIBODY, FOURTH GENERATION W/RFL Routine 06/28/2025 9:49 AM EDT HEPATITIS PANEL, GENERAL Routine 025 9:49 AM EDT MA INSERTION INTRAUTERINE DEVICE IUD Routine 05/30/2025 11:30 AM EDT Encounter for IUD insertion POCT , URINE Routine 05/30/2025 11:13 AM EDT Encounter for IUD insertion POCT , URINE Routine 05/01/2025 11:00 AM EDT Encounter for IUD insertion MA INSERTION INTRAUTERINE DEVICE IUD Routine 05/01/2025 11:00 AM EDT Encounter for IUD insertion XR ABDOMEN 2V+ Routine 04/24/2025 11:39 AM EDT HM PAP/HPV Routine 05/07/2024 from Last 3 Months or Most Recently Relevant to Health Maintenance Results * Hepatitis Panel, General (06/28/2025 9:49 AM EDT) Hepatitis A IgM Nonreactive Nonreactive [facility] Comment:IgM antibodies to KERNS V not detected; does not exclude earlyacute or recovered HAV infection. ~Hepatitis B Surface Antibody REACTIVE Nonreactive [facility] Comment:REACTIVE: > 11.99 mI U/mL Hepatitis B Core Antibody Nonreactive Nonreactive [facility] Hepatitis C Antibody Nonreactive Nonreactive [facility] Comment:Antibodies to HCV no t detected; does not exclude early acuteHCV infection. Hepatitis B Surface Ag Negative Negative [facility] 06/28/2025 9:49 AM EDT 06/28/2025 11:05 AM EDT us Generic External Data Provider LAB BLOOD ORDERAB LES Final Result [facility] [address] [place] [phone] * Tissue Transglutaminase Antibody, IgA (06/28/2025 9:49 AM EDT) Transglutaminase IgA <1.0 U/mL [facility] Comment:Value Interpretation ----- <15.0 Antibody not detected> or = 15.0 Antibody detectedTHIS TEST WAS PERFORMED AT:[email or web address] [place] [phone] GARIBAY MD 06/28/2025 9:49 AM EDT 06/28/2025 11:16 AM EDT us Generic External Data Provider LAB BLOOD ORDERAB LES Final Result Performing Organization Address City/[facility]/ZIP Co de Phone Number [facility] [address] [place] [phone] * HIV-1/2 Antigen and Antibodies, Fourth Generation, with Reflexes (06/28/2025 9:49 AM EDT) HIV AB/AG Nonreactive Nonreactive [facility] Comment:HIV-1 p24 Ag and/or HIV-1/HIV-2 Ab not detected.A test result that is nonreactive does not exclude thepossibility of exposure to or infection with HIV-1 and/orHIV-2. Nonreactive results in this assay for individualswith prior exposure to HIV-1 and/or HIV-2 may be due toantigen and antibody levels that are below the limit ofdetection of this assay.[employer] HIV Ag/Ab Combo assay result andsupplemental assay results should be interpreted inconjunction with the patient's clinical presentation,history and other laboratory results. If the results areinconsistent with clinical evidence, additional testing issuggested to confirm the result. 06/28/2025 9:49 AM EDT 06/28/2025 11:05 AM EDT us Generic External Data Provider LAB BLOOD ORDERAB LES Final Result Performing Organization Address City/[facility]/ZIP Co de Phone Number [facility] [address] [place] [phone] * MA INSERTION INTRAUTERINE DEVICE IUD (05/30/2025 11:30 AM EDT) Narrative Barbi Monroe CNM - 05/30/2025 11:30 AM EDT Barbi Monroe CNM 05/30/2025 11:51 AM IUD Management Performed by: Barbi Monroe CNM Authorized by: Barbi Monroe CNM Procedure: IUD insertion Consent obtained by patient, parent, or legal power of defense attorney - including discussion of procedure risks [...] Media Lot # [id number] Lot# Expiration Date [id number] Urine 05/30/2025 11:1 3 AM EDT Barbi [...] by patient, parent, or legal power of defense attorney - including discussion of procedure risks [...] while menstruating. She opted for second option. [facility] IN CLINIC/BEDSIDE ORDERAB LES Final Result * XR Abdomen 2 View minimum (04/24/2025 11:39 AM EDT) Anatomical Region Laterality Modality Abdomen Radiographic Laurence ging 04/24/2025 11:3 9 AM EDT Narrative 04/24/2025 12:55 PM EDT [place] [address] XRay Report Signed Patient: Angela Ceballos MR#: [id number] : 1995 Acct:[id number] Age/Sex: 30 / F ADM Date: 04/24/25 Loc: HO.CL Attending Dr: Terra Enriquez NP Ordering Physician: Terra Enriquez NP Date of Service: 04/24/25 Procedure(s): XR abdomen min 2V Accession Number(s): [id number] cc: Kat Nguyen MD; Terra Enriquez NP EXAMINATION: XR ABDOMEN 2 VIEWS SUPINE ERECT [...] 04/24/25 1253 DD/ 1139 TD/TT: 04/24/25 1200 Cooler Worker: Procedure Note Donotuseinterpreter, Image - 04/24/2025 [place] [address] XRay Report Signed Patient: Angela Ceballos MR#: [id number] : 1995Acct:[id number] Age/Sex: Date: 04/24/25 Loc: HO.CL Attending Dr: Terra Enriquez NP Ordering Physician: Terra Enriquez NP Date of Service: 04/24/25 Procedure(s): XR abdomen min 2V Accession Number(s): [id number] cc: Kat Nguyen MD; Terra Enriquez SECURITY ASSURANCE SPECIALIST EXAMINATION: XR ABDOMEN 2 VIEWS SUPINE ERECT [...] 04/24/25 1253 DD/ 1139 TD/TT: 04/24/25 1200 Cooler Worker: us Terra Enriquez SECURITY ASSURANCE SPECIALIST IMG XR PROCEDURES Final Result * HM PAP/HPV (05/07/2024) Pap Smear 1. NILM 1. NILM HPV Undetected Undetected, Indeterminate , Quantitative, Not Detected us Kat Nguyen MD HEALTH MAINTENANCE Final Result from Last 3 Months or Most Recently Relevant to Health Maintenance Insurance [employer] Care Teams Channel Marketing Program Manager Relationship Specialty Start Date End Date Kat Nguyen MD [address] [place] [phone] PCP - General Internal Medicine 10/16/24
== END 2025-07-25 10:30 | disposition home or self-care (01) ==
LOC: HO.HGI 09:38
PROVIDERS: PCP Internal Medicine; Visit Provider Nurse Practitioner Family
DX: K59.00 Constipation, unspecified (principal); R63.4 Abnormal weight loss; R10.13 Epigastric pain
CPT/HCPCS: 99213

== ENCOUNTER → 2025-07-25 09:37 | Outpatient (BNVA) | payer MEDICAID, SELFPAY | PROVIDERS: PCP Internal Medicine; Visit Provider Nurse Practitioner Family | DX: R63.4 Abnormal weight loss (principal); K59.00 Constipation, unspecified; R10.13 Epigastric pain | CPT/HCPCS: 99212 ==

== ENCOUNTER 2025-08-23 08:57 | Outpatient (REF) | payer MEDICAID, SELFPAY ==
--- NOTE | ~2025-08-23 | MM_ITS ---
EXAMINATION: MM DIAGNOSTIC DIGITAL BREAST TOMOSYNTHESIS, BILATERAL Bilateral Limited ultrasound. CLINICAL INFORMATION: Bilateral breast pain. COMPARISON: Mammography: Comparison is made with relevant prior exams. TECHNIQUE: Digital breast mammography with tomosynthesis is performed in both the craniocaudal and mediolateral oblique views along with computer-aided detection (CAD). FINDINGS: The breasts are extremely dense, which lowers the sensitivity of mammography. [place] markers at site of patient's pain in the upper outer left breast and upper outer upper central right breast without underlying abnormal finding. There are no significant masses, abnormal calcifications, or other abnormalities. Targeted color Doppler ultrasound scanning in the right breast from 10 2:00 demonstrates a area of probable adjacent minimally complicated cysts at 11:00 5 cm from the nipple measuring 9 x 4 x 8 mm. There is a thin intervening septation without internal vascular flow. Otherwise scanning from 10 -2:00 demonstrate normal fibroglandular breast tissue. Targeted color Doppler ultrasound in the left breast upper outer quadrant 15 cm from the nipple demonstrates a normal-appearing intramammary lymph node. Otherwise there is normal fibroglandular breast tissue. Results are provided to the patient at time of visit by the technologist. MM/MM tomosynthesis diagnostic BI IMPRESSION: Right: Probable adjacent minimally complicated cysts with a thin avascular intervening septation. Recommend 6 month follow-up for confirmation. No mammographic or sonographic abnormal finding to account for the patient's right breast pain. Recommend clinical evaluation follow-up. Left: Normal intramammary lymph node on ultrasound. Otherwise no mammographic or sonographic abnormal finding to account for the patient's left breast areas of pain. Recommend clinical evaluation and follow-up. ASSESSMENT: BI-RADS Category 3: Probably benign RECOMMENDATION: 6 Month F/U Electronically signed by: Cherelle Noble DO 08/23/2025 12:09 PM GARCIA
== END 2025-08-23 08:58 | disposition home or self-care (01) ==
LOC: HO.MAMMO 08:57
PROVIDERS: PCP Internal Medicine; Visit Provider Internal Medicine
DX: N64.4 Mastodynia (principal)
CPT/HCPCS: 76642; 77062; 77066

== ENCOUNTER → 2025-08-23 09:00 | Outpatient (BNV) | payer MEDICAID, SELFPAY | PROVIDERS: PCP Internal Medicine; Visit Provider Internal Medicine | DX: N64.4 Mastodynia (principal) | CPT/HCPCS: 76642; 77062; 77066 ==

== ENCOUNTER 2025-09-10 17:42 | Outpatient (REF) | payer MEDICAID, SELFPAY ==
--- OUTSIDE RECORDS SUMMARY | 2025-09-10 13:15 | XMS_ITS | Encounter Summary ---
Author Organization [employer] Address [address] [facility] [address] [place] [address] Care Team Providers Care Change Booth Attendant Name Role Phone Kat Nguyen MD Primary Care Provider + Encounter Details Date Type Department Care Team (Latest Contact Info) Description 09/10/2025 1:15 PM EST Procedure Visit [facility] [address], [place] [phone] Barbi Monroe, ERNIE [address] [place] [address] Family planning (Primary Dx); Vaginal discharge Social History Tobacco Use Types Packs/Day Years [...] with others, in a hotel, in a senior care, living outside on the street, on a [...] Date Recorded No desire to become (finding) 1 11/11/2024 Sex and Gender Information Value Date Recorded Sex Assigned at Female 10/16/2024 11:19 AM EST Legal Sex Female 11:13 AM EST Gender Identity Female 10/16/2024 11:19 AM EST Sexual Orientation Straight 10/16/2024 11 :19 AM EST documented as of this encounter Last Filed Vital Signs Vital Sign Reading Time Taken Comments Blood Pressure 106/72 09/10/2025 1:09 PM EST Pulse 75 09/10/2025 1:09 PM EST Temperature 36.1 C (97 F) 09/10/2025 1:09 PM EST Respiratory Rate 22 09/10/2025 1:09 PM EST Oxygen Saturation 97% 09/10/2025 1:09 PM EST Inhaled Oxygen Concentration - - Weight 62.5 kg (137 lb 12.8 oz) 09/10/2025 1:09 PM EST Height 203.2 cm (6' 8 ) 09/10/2025 1:09 PM EST Body Mass Index 15.14 09/10/2025 1:09 PM EST documented in this encounter Progress Notes * Barbi Monroe CNM - 09/10/2025 1:15 PM ESTAssociated Order(s): Insertion/Removal of Contraceptive Capsule Subjective Patient ID: Angela Craig is a 30 y.o. female who presents for control Unsuccessful IUD insertion x 2. Interested in Nexplanon. She used before, did note some mood changes, but would like to try again. Not sexually active in past month. LMP 09/03. test negative today. No contraindication to implant. Notes some vaginal discharge and irritation recently, no triggering factors. Would like to self collect vaginal swab. Pap NIL/HPV neg 2023. Review of Systems Objective BP 106/72 (BP Location: Left arm, Patient Position: Sitting, BP Cuff Size: Adult) Pulse 75 Temp97 ??F (36.1 ??C) (Oral) Resp 22 Ht 6' 8 (2.032 m) Wt 137 lb 12.8 oz (62.5 kg) SpO2 97% BMI 15.14 kg/m?? Physical Exam Constitutional: Appearance: Normal appearance. Neurological: Mental Status: She is alert. Psychiatric: Mood and Affect: Mood normal. Behavior: Behavior normal. Assessment/Plan Diagnoses and all orders for this visit: Family planning - POCT , urine manually resulted Reviewed normal side effects and danger signs. Report arm pain, redness, heavy bleeding. Leave pressure dressing on for 24h, Band-Aid for 3-5days. Expect irregular bleeding, or less likely, no bleeding at all. Report if implant not palpable. Requested acetaminophen prescription in case of arm discomfort, prescription sent. Return in 4wks for follow up. Advised to use additional control for 7 days. 100% condoms encouraged for STI prevention. Reviewed that Nexplanon is FDA approved for 3y, but research supports extended use up to 5 years Vaginal discharge - Bacterial Vaginosis Panel Bacterial vaginosis swab sent. Will treat positive results. Other orders - acetaminophen (Tylenol Extra Strength) 500 MG tablet; 1-2 tablets Q8h prn pain. Do not take more than 6 tablets in 24 hours Insertion/Removal of Contraceptive Capsule Date/Time: 09/10/2025 1:25 PM Performed by: Barbi Monroe CNM Authorized by: Barbi Monroe CNM Confirmed correct patient, procedure, site, and patient consented: Yes Participating Staff: Barbi Monroe Consent: Consent obtained: Verbal and written Consent given by: Patient Procedural risks and benefits discussed: Yes Patient questions answered: yes Patient agrees, verbalizes understanding, and wants to proceed: yes Instructions and paperwork completed: yes Indication: Indication: insertion of non-biodegradable drug delivery implant Pre-procedure: Pre-procedure timeout performed: yes Prepped with: povidone-iodine Local anesthetic: 2ml 2% lidocaine. The site was cleaned and prepped in a sterile fashion: yes Procedure: Procedure: Insertion Left/right: Left Preloaded contraceptive capsule trocar was placed subdermally: yes Visualization of implant was obtained: yes Contraceptive capsule was inserted and trocar removed: yes Visualization of notch in stylet and palpation of device: yes Palpation confirms placement by provider and patient: yes Site was closed with steri-strips and pressure bandage applied: yes OSM: 1 each etonogestrel-eluting 68 mg documented in this encounter Plan of Treatment Upcoming Encounters Date Type Department Care Team (Late st Contact Info) Description 10/10/2025 3:30 PM EST Office Visit [facility] [address] [place] [phone] Barbi Monroe CNM [address] [place] [address] [phone] 10/28/2025 9:00 AM EST Telemedicine [facility] [address] [place] [address] [phone] Kat Nguyen MD [address] [place], [place] [phone] Scheduled Orders Name Type Priority Associated Diagnoses Orde r Schedule Bacterial Vaginosis Panel Microbiology Routine Vaginal discharge Ordered: 09/10/2025 documented as of this encounter Procedures Procedure Name Priority Date/Time Associated Diagnosis Comments AR INSERTION DRUG DELIVERY IMPLANT Routine 09/10/2025 1:25 PM EST Family planning POCT , URINE Routine 09/10/2025 1:17 PM EST Family planning documented in this encounter Results * AR INSERTION DRUG DELIVERY IMPLANT (09/10/2025 1:25 PM EST) Narrative Barbi Monroe CNM - 09/10/2025 1:25 PM EST Barbi Monroe CNM 09/10/2025 1:41 PM Insertion/Removal of Contraceptive Capsule Date/Time: 09/10/2025 1:25 PM Performed by: Barbi Monroe CNM Authorized by: Barbi Monroe CNM Confirmed correct patient, procedure, site, and patient consented: Yes Participating Staff: Barbi Monroe Consent: Consent obtained: Verbal and written Consent given by: Patient Procedural risks and benefits discussed: Yes Patient questions answered: yes Patient agrees, verbalizes understanding, and wants to proceed: yes Instructions and paperwork completed: yes Indication: Indication: insertion of non-biodegradable drug delivery implant Pre-procedure: Pre-procedure timeout performed: yes Prepped with: povidone-iodine Local anesthetic: 2ml 2% lidocaine. The site was cleaned and prepped in a sterile fashion: yes Procedure: Procedure: Insertion Left/right: Left Preloaded contraceptive capsule trocar was placed subdermally: yes Visualization of implant was obtained: yes Contraceptive capsule was inserted and trocar removed: yes Visualization of notch in stylet and palpation of device: yes Palpation confirms placement by provider and patient: yes Site was closed with steri-strips and pressure bandage applied: yes OSM: 1 each etonogestrel-eluting 68 mg Barbi Monroe CNM IN CLINIC/BEDSIDE ORDERAB LES Final Result * POCT , urine manually resulted (09/10/2025 1:17 PM EST) Preg Test, Ur Negative Negative, Indeterminate, None Detected, Trace, 3+, Specimen unsatisfactory for evaluation, Weakly Positive, 1+, 2+ QC Media Lot # [id number] Lot# Expiration Date [id number] QC TEST [id number] Urine 09/10/2025 1:17 PM EST Barbi Monroe CNM POINT OF CARE TEST ENTER/ EDIT ORDERABLES Final Result documented in this encounter Visit Diagnoses Diagnosis Family planning- Primary Other general counseling and advice for contraceptive management Vaginal discharge Leukorrhea, not specified as infective documented in this encounter Administered Medications Inactive Administered Medications - up to 3 most recent administrations Medication Order MAR Action Action Date Dose Rate Site etonogestrel-eluting 68 mg contraceptive implant 1 each 1 each, Once PRN Procedure, Starting on Tue09/10/25 at 1325, For 1 doseIndications:Family planning Given 09/10/2025 1:25 PM EST 1 each documented in this encounter Care Teams Change Booth Attendant Relationship Specialty Start Date End Date Kat Nguyen MD [address] [place] [phone] PCP - General Internal Medicine 10/16/24 documented as of this encounter
--- OUTSIDE RECORDS SUMMARY | 2025-09-10 17:45 | XMS_ITS | Encounter Summary ---
Author Organization [employer] Address [address] [facility] [address] [place] [address] Care Team Providers Care Paint Maker Name Role Phone Kat Nguyen MD Primary Care Provider + Encounter Details Date Type Department Care Team (Latest Contact Info) Description 09/10/2025 Travel Social History Tobacco Use Types Packs/Day Years Used Date Smoking Tobacco: Never Passive Smoke Exposure: Never Smokeless Tobacco: Never Alcohol Use Standard Drinks/Week Comments Never 0 (1 standard drink = 0.6 oz pur e alcohol) Housing Stability Answer Date Recorded What is your housing situation today? I do not have housing (Staying with others, in a hotel, in a senior living, living outside on the street, on a [...] Description 10/10/2025 3:30 PM EST Office Visit [facility] [address] [place] [phone] Barbi Monroe CNM [address] [place] [phone] 10/28/2025 9:00 AM EST Telemedicine [facility] [address] [place] [phone] Kat Nguyen MD [address] [place] [address] [phone] documented as of this encounter Visit Diagnoses Not on filedocumented in this encounter Care Teams Paint Maker Relationship Specialty Start Date End Date Kat Nguyen MD [address] [place] [phone] PCP - General Internal Medicine 10/16/24 documented as of this encounter
--- OUTSIDE RECORDS SUMMARY | 2025-09-10 17:45 | XMS_ITS | Encounter Summary ---
Author Organization [employer] Address [address] [facility] [address] [place] [address] Care Team Providers Care Development Vice President Name Role Phone Kat Nguyen MD Primary Care Provider + Encounter Details Date Type Department Care Team ([facility] st Contact Info) Description 05/31/2025 Telephone [facility] MED[facility]INE [address] [place], [place] [phone] Terra Enriquez NP [address] [place] [address] Social History Tobacco Use Types Packs/Day Years Used Date Smoking Tobacco: Never Passive Smoke Exposure: Never Smokeless Tobacco: Never Alcohol Use Standard Drinks/Week Comments Never 0 (1 standard drink = 0.6 oz pur e alcohol) Housing Stability Answer Date Recorded What is your housing situation today? I do not have housing (Staying with others, in a hotel, in a [facility], living outside on the street, on a [...] Description 10/10/2025 3:30 PM EST Office Visit [facility]INE [address] [place] [phone] Barbi Monroe CNM [address] [place] [phone] 10/28/2025 9:00 AM EST Telemedicine [address] [phone] Kat Nguyen MD [address] [place] [phone] documented as of this encounter Visit Diagnoses Not on filedocumented in this encounter Care Teams Development Vice President Relationship Specialty Start Date End Date Kat Nguyen MD [address] [place] [phone] PCP - General Internal Medicine 10/16/24 documented as of this encounter
--- OUTSIDE RECORDS SUMMARY | 2025-09-10 17:45 | XMS_ITS | Encounter Summary ---
Author Organization [employer] Address [address] [place] [address] Care Team Providers Care Supervisor Paint Name Role Phone Kat Nguyen MD Primary Care Provider + Reason for Visit * Reason Onset Date Comments recall 09/06/2025 Encounter Details Date Type Department Care Team ([facility] Contact Info) Description 09/06/2025 Telephone [facility] [address], [place] [phone] Kat Nguyen MD [address] [place], [place] [phone] recall Social History Tobacco Use Types Packs/Day Years Used Date Smoking Tobacco: Never Passive Smoke Exposure: Never Smokeless Tobacco: Never Alcohol Use Standard Drinks/Week Comments Never 0 (1 standard drink = 0.6 oz pur e alcohol) Housing Stability Answer Date Recorded What is your housing situation today? I do not have housing (Staying with others, in a hotel, in a prison, living outside on the street, on a [...] encounter Miscellaneous Notes * Telephone Encounter - Erin Srinivasan MA - 09/06/2025 2:04 PM EST Telephone call to patient to schedule the following recall: Visit type: Televisit Appointment notes: DUB/neck pain Patient agree to appointment on 10/28/25 at 9:00 AM with Wendy. documented in this encounter Plan of Treatment Upcoming Encounters Date Type Department Care Team (Late st Contact Info) Description 10/10/2025 3:30 PM EST Office Visit [facility] [address] [place] [phone] Barbi Monroe CNM [address] [place] [phone] 10/28/2025 9:00 AM EST Telemedicine [facility] [address] [place] [phone] Kat Nguyen MD [address] [place] [phone] documented as of this encounter Visit Diagnoses Not on filedocumented in this encounter Care Teams Supervisor Paint Relationship Specialty Start Date End Date Kat Nguyen MD [address] [place] [phone] PCP - General Internal Medicine 10/16/24 documented as of this encounter
--- OUTSIDE RECORDS SUMMARY | 2025-09-10 17:45 | XMS_ITS | Encounter Summary ---
Author Organization [employer] Address [address] [place] [address] Care Team Providers Care Rug Dry Room Attendant Name Role Phone Kat Nguyen MD Primary Care Provider + Reason for Visit * Reason Onset Date Comments Med Refill 12/24/2024 Encounter Details Date Type Department Care Team (Late st Contact Info) Description 12/24/2024 Refill [facility] [address] [place], [place] [phone] Kat Nguyen MD [address] [place], [place] [phone] Social History Tobacco Use Types Packs/Day Years [...] Description 10/10/2025 3:30 PM EST Office Visit [facility] [address] [place] [phone] Barbi Monroe, [address] [phone] 10/28/2025 9:00 AM EST Telemedicine [facility] [address] [place] [phone] Kat Nguyen MD [address] [place] [phone] documented as of this encounter Visit Diagnoses Not on filedocumented in this encounter Care Teams Rug Dry Room Attendant Relationship Specialty Start Date End Date Kat Nguyen MD [address] [place] [phone] PCP - General Internal Medicine 10/16/24 documented as of this encounter
--- OUTSIDE RECORDS SUMMARY | 2025-09-10 17:45 | XMS_ITS ---
Results are provided to the patient at time of visit by the technologist. US/US Breast BI Limited Mamm Only IMPRESSION: Right: Probable adjacent minimally complicated cysts with a thin avascular intervening septation. Recommend 6 month follow-up for confirmation. No mammographic or sonographic abnormal finding to account for the patient's right breast pain. Recommend clinical evaluation follow-up. Left: Normal intramammary lymph node on ultrasound. Otherwise no mammographic or sonographic abnormal finding to account for the patient's left breast areas of pain. Recommend clinical evaluation and follow-up. ASSESSMENT: BI-RADS Category 3: Probably benign RECOMMENDATION: 6 Month F/U Electronically signed by: Cherelle Noble DO 08/23/2025 12:09 PM EST Dictated By: Cherelle Noble DO Signed By: <Electronically signed by Cherelle Noble DO in OV> 08/23/25 1209 DD/ 0951 TD/TT: 08/23/25 1016 Charging Plug Placer: us Mckayla Narayan CNM IMG US PROCEDURES Final R esult * BI Mammogram Diagnostic Tomosynthesis Bilateral (08/23/2025 9:00 AM EST) Anatomical Region Laterality Modality Breast Bilateral Mammography 08/23/2025 9:00 AM EST Narrative 08/23/2025 12:12 PM EST [facility] [address] [place] [address] Mammography Report Signed Patient: Angela Ceballos MR#: [id number] : 1995 Acct:[id number] Age/Sex: 30 / F ADM Date: 08/23/25 Loc: [facility] Attending Dr: Kta Nguyen MD Ordering Physician: MCKAYLA NARAYAN CNM Results: 3 Probably Benign Date of Service: 08/23/25 Follow Up: 6 Month F/U Procedure(s): MM tomosynthesis diagnostic BI Accession Number(s): [id number] cc: Kat Nguyen MD; MCKAYLA NARAYAN CNM Reason For Exam: right breast pain upper outer quadrant, cystic area EXAMINATION: MM DIAGNOSTIC DIGITAL BREAST TOMOSYNTHESIS, BILATERAL Bilateral Limited ultrasound. CLINICAL INFORMATION: Bilateral breast pain. COMPARISON: Mammography: Comparison is made with relevant prior exams. TECHNIQUE: Digital breast mammography with tomosynthesis is performed in both the craniocaudal and mediolateral oblique views along with computer-aided detection (CAD). FINDINGS: The breasts are extremely dense, which lowers the sensitivity of mammography. Roselle markers at site of patient's pain in the upper outer left breast and upper outer upper central right breast without underlying abnormal finding. There are no significant masses, abnormal calcifications, or other abnormalities. Targeted color Doppler ultrasound scanning in the right breast from 10 2:00 demonstrates a area of probable adjacent minimally complicated cysts at 11:00 5 cm from the nipple measuring 9 x 4 x 8 mm. There is a thin intervening septation without internal vascular flow. Otherwise scanning from 10 -2:00 demonstrate normal fibroglandular breast tissue. Targeted color Doppler ultrasound in the left breast upper outer quadrant 15 cm from the nipple demonstrates a normal-appearing intramammary lymph node. Otherwise there is normal fibroglandular breast tissue. Results are provided to the patient at time of visit by the technologist. MM/MM tomosynthesis diagnostic BI IMPRESSION: Right: Probable adjacent minimally complicated cysts with a thin avascular intervening septation. Recommend 6 month follow-up for confirmation. No mammographic or sonographic abnormal finding to account for the patient's right breast pain. Recommend clinical evaluation follow-up. Left: Normal intramammary lymph node on ultrasound. Otherwise no mammographic or sonographic abnormal finding to account for the patient's left breast areas of pain. Recommend clinical evaluation and follow-up. ASSESSMENT: BI-RADS Category 3: Probably benign RECOMMENDATION: 6 Month F/U Electronically signed by: Cherelle Noble DO 08/23/2025 12:09 PM [facility] Dictated By: Cherelel Noble DO Signed By: <Electronically signed by Cherelle Noble DO in OV> 08/23/25 1209 DD/ 0900 TD/TT: 08/23/25 0935 Charging Plug Placer: Procedure Note Donotuseinterpreter, Image - 08/23/2025 [facility] [address] [place] [address] [place] [address] Mammography Report Signed Patient: Angela Ceballos MR#: [id number] : 1995Acct:[id number] Age/Sex: 30 / FADM Date: 08/23/25 Loc: HO.MAMMO Attending Dr: Kat Nguyen MD Ordering Physician: MCKAYLA NARAYANesults: 3 Probably Benign Date of Service: 08/23/25Follow Up: 6 Month F/U Procedure(s): MM tomosynthesis diagnostic BI Accession Number(s): [id number] cc: Kat Nguyen MD; MCKAYLA NARAYAN CNM Reason For Exam: right breast pain upper outer quadrant, cystic area EXAMINATION: MM DIAGNOSTIC DIGITAL BREAST TOMOSYNTHESIS, BILATERAL Bilateral Limited ultrasound. CLINICAL INFORMATION: Bilateral breast pain. COMPARISON: Mammography: Comparison is made with relevant prior exams. TECHNIQUE: Digital breast mammography with tomosynthesis is performed in both the craniocaudal and mediolateral oblique views along with computer-aided detection (CAD). FINDINGS: The breasts are extremely dense, which lowers the sensitivity of mammography. Roselle markers at site of patient's pain in the upper outer left breast and upper outer upper central right breast without underlying abnormal finding. There are no significant masses, abnormal calcifications, or other abnormalities. Targeted color Doppler ultrasound scanning in the right breast from 10 2:00 demonstrates a area of probable adjacent minimally complicated cysts at 11:00 5 cm from the nipple measuring 9 x 4 x 8 mm. There is a thin intervening septation without internal vascular flow. Otherwise scanning from 10 -2:00 demonstrate normal fibroglandular breast tissue. Targeted color Doppler ultrasound in the left breast upper outer quadrant 15 cm from the nipple demonstrates a normal-appearing intramammary lymph node. Otherwise there is normal fibroglandular breast tissue. Results are provided to the patient at time of visit by the technologist. MM/MM tomosynthesis diagnostic BI IMPRESSION: Right: Probable adjacent minimally complicated cysts with a thin avascular intervening septation. Recommend 6 month follow-up for confirmation. No mammographic or sonographic abnormal finding to account for the patient's right breast pain. Recommend clinical evaluation follow-up. Left: Normal intramammary lymph node on ultrasound. Otherwise no mammographic or sonographic abnormal finding to account for the patient's left breast areas of pain. Recommend clinical evaluation and follow-up. ASSESSMENT: BI-RADS Category 3: Probably benign RECOMMENDATION: 6 Month F/U Electronically signed by: Cherelle Noble DO 08/23/2025 12:09 PM EST Dictated By: Cherelle Noble DO Signed By: <Electronically signed by Cherelle Noble DO in OV> 08/23/25 1209 DD/ 0900 TD/TT: 08/23/25 0935 Charging Plug Placer: Mckayla Narayan CNM IMG BI PROCEDURES Final R esult * Hepatitis Panel, General (06/28/2025 9:49 AM EDT) Hepatitis A IgM Nonreactive Nonreactive [facility] Comment:IgM antibodies to KERNS V not detected; does not exclude earlyacute or recovered HAV infection. ~Hepatitis B Surface Antibody REACTIVE Nonreactive [facility] Comment:REACTIVE: > 11.99 mI U/mL Hepatitis B Core Antibody Nonreactive Nonreactive [facility] Hepatitis C Antibody Nonreactive Nonreactive [facility] Comment:Antibodies to HCV no t detected; does not exclude early acuteHCV infection. Hepatitis B Surface Ag Negative Negative [facility] 06/28/2025 9:49 AM EDT 06/28/2025 11:05 AM EDT us Generic External Data Provider LAB BLOOD ORDERAB LES Final Result [facility] [address] [place] [phone] * Tissue Transglutaminase Antibody, IgA (06/28/2025 9:49 AM EDT) Transglutaminase IgA <1.0 U/mL [facility] Comment:Value Interpretation ----- <15.0 Antibody not detected> or = 15.0 Antibody detectedTHIS TEST WAS PERFORMED AT:[facility] [place] [phone] GARIBAY MD 06/28/2025 9:49 AM EDT 06/28/2025 11:16 AM EDT us Generic External Data Provider LAB BLOOD ORDERAB LES Final Result Performing Organization Address City/[facility]/ZIP Co de Phone Number [facility] [address] [place] [phone] * HIV-1/2 Antigen and Antibodies, Fourth Generation, with Reflexes (06/28/2025 9:49 AM EDT) HIV AB/AG Nonreactive Nonreactive [facility] Comment:HIV-1 p24 Ag and/or HIV-1/HIV-2 Ab not detected.A test result that is nonreactive does not exclude thepossibility of exposure to or infection with HIV-1 and/orHIV-2. Nonreactive results in this assay for individualswith prior exposure to HIV-1 and/or HIV-2 may be due toantigen and antibody levels that are below the limit ofdetection of this assay.The [employer] HIV Ag/Ab Combo assay result andsupplemental assay results should be interpreted inconjunction with the patient's clinical presentation,history and other laboratory results. If the results areinconsistent with clinical evidence, additional testing issuggested to confirm the result. 06/28/2025 9:49 AM EDT 06/28/2025 11:05 AM EDT us Generic External Data Provider LAB BLOOD ORDERAB LES Final Result Performing Organization Address [facility]/ZIP Co de Phone Number [facility] [address] [place] [phone] * HM PAP/HPV (05/07/2024) Pap Smear 1. NILM 1. NILM HPV Undetected Undetected, Indeterminate , Quantitative, Not Detected Kat Nguyen MD HEALTH MAINTENANCE Final Result from Last 3 Months or Most Recently Relevant to Health Maintenance Insurance [facility] C3 Care Teams Email Production Specialist Relationship Specialty Start Date End Date Kat Nguyen MD [address] [place] [phone] PCP - General Internal Medicine 10/16/24 Clinical Summary Created on: September 10, 2025 Angela Ceballos : 1995 Sex: Female Author Organization [employer] Address [address] [facility] 7 [place] [address] Care Team Providers Care Email Production Specialist Name Role Phone Kat Nguyen MD Primary Care Provider + Allergies No known active allergies Medications cyclobenzaprine (Flexeril) 10 MG tablet Take 1 tablet (10 mg) by mouth at bedtime for 10 days. 10 tablet 5 Active meloxicam (Mobic) 15 MG tablet Take 1 tablet (15 mg) by mouth Once per day. 30 tablet 5 02/26/20 26 Active famotidine (Pepcid) 20 MG tablet Take 1 tablet (20 mg) by mouth 2 times daily. 180 tablet 5 04/26/20 26 Active bisacodyl (Dulcolax) 5 MG EC tablet Take 1 tablet (5 mg) by mouth if needed each day for constipation . Do not crush, chew, or split. 90 tablet 5 Active fluticasone (Flonase) 50 MCG/ACT nasal spray SPRAY 1 SPRAY IN EACH NOSTRIL ONCE DAILY 48 g 5 Active acetaminophen (Tylenol Extra Strength) 500 MG tablet 1-2 tablets Q8h prn pain. Do not take more than 6 tablets in 24 hours 30 tablet 5 Active miSOPROStol (Cytotec) 200 MCG tabletIndicatio ns:Encounter for IUD insertion Take 1 tablet in each cheek 1 hour before appointment. 2 tablet 5 09/10/20 25 Discontinu ed(Therapy completed) Hospital, Clinic, or Other Facility Administered Medication Ordered Dose Route Frequency Start Date End Date Status lidocaine 2 % gelIndications:Encoun ter for IUD insertion TOP As needed 05/01/2025 Act riley etonogestrel-eluting 68 mg contraceptive implant 1 eachIndications:Famil y planning 1 each Once PRN Procedure 09/10/2025 09/10/2025 Ended Active Problems Problem Noted Date Diagnosed Date Gastroesophageal reflux disease without esophagi tis 04/24/2025 Assessment & Plan (05/31/2025 1:25 PM EDT): Improved, referral to GI due to chronic constipation Chronic low back pain with sciatica 04/24/2025 Dysmenorrhea 04/24/2025 Encounter for other contraceptive management 05/2025 Assessment & Plan (02/25/2025 5:39 PM EDT): Patient is aware of contraceptive options after seen by animal laboratory helper, she wants IUD (Mirena) insertion I will refer to animal laboratory helper for Mirena insertion We discussed about using [...] wants Nexplanon replaced by IUD. Refer to CASE CONSULTANT. Order STI testing. Assessment & Plan (10/16/2024 [...] Encounters Date Type Department Care Team Description 09/10/2025 1:15 PM EST Procedure Visit [facility] [address] [place] [phone] Mckayla Narayan CNM Family planning (Primary Dx); Vaginal discharge 09/10/2025 Travel 09/06/[address] [phone] Kat Nguyen MD recall 08/26/2025 Orders Only [address] [address] Mckayla Narayan CNM Breast pain, right (Primary Dx) 08/23/2025 Results Follow-Up [facility] [address] [place] [address] Mckayla Narayan, [place] BI US Breast Limited Bilateral 07/18/2025 Refill [facility] [address], [place] [phone] Kat Nguyen MD 07/03/2025 Results Follow-Up [facility] [address] [place] [address] Kat Nguyen MD Hepatitis Panel, General, HIV-1/2 Antigen and Antibodies, Fourth Generation, with Reflexes, Tissue Transglutaminase Antibody, IgA 06/28/2025 Orders Only GENERIC EXTERNAL DATA DEPARTMENT Provider, Generic External Data from Last 3 Months Social History Tobacco [...] with others, in a hotel, in a long term, living outside on the street, on a [...] Mass Index 15.14 09/10/2025 1:09 PM EST Plan of Treatment Upcoming Encounters Date Type Department Care Team (Late st Contact Info) Description 10/10/2025 3:30 PM EST Office Visit [facility] [address] [place] [phone] Mckayla Narayan, ER[address] [address] 10/28/2025 9:00 AM EST Telemedicine [address] [phone] Kat Nguyen MD [address] [place] [phone] Health Maintenance Due Date Last Done Comments [...] Screening 01/16/2026 01/16/2025 Disability Screening 01/16/2026 01/16/2025 Diagnostic Breast Imaging 02/21/20262024, 08/23/2025 Mammogram 02/21/2026 08/23/2025, 08/23/2025 Family Planning (PISQ) 09/10/2026 09/10/2025 Tobacco Screening 09/10/2026 09/10/2025 Cervical Cancer Screening 05/07/2029 HPV/Cotest 05/07/2029 05/07/2024 Pap Smear 05/07/2029 05/07/2024 RSV Patients and Patients Aged [...] Priority Date/Time Associated Diagnosis Comments MA INSERTION DRUG DELIVERY IMPLANT Routine 09/10/2025 1:25 PM EST Family planning POCT , URINE Routine 09/10/2025 1:17 PM EST Family planning AMB REFERRAL TO BREAST SURGEON Urgent 09/09/2025 Breast pain, right BI US BREAST LIMITED BILATERAL Urgent 08/23/2025 9:51 AM EST BI MAMMOGRAM DIAGNOSTIC TOMOSYNTHESIS BILATERAL Routine 08/23/2025 9:00 AM EST Breast pain, right TISSUE TRANSGLUTAMINASE AB, IGA Routine 06/28/2025 9:49 AM EDT HIV 1/2 ANTIGEN/ANTIBODY, FOURTH GENERATION W/RFL Routine 06/28/2025 9:49 AM EDT HEPATITIS PANEL, GENERAL Routine 025 9:49 AM EDT HM PAP/HPV Routine 05/07/2024 from Last 3 Months or Most Recently Relevant to Health Maintenance Results * MA INSERTION DRUG DELIVERY IMPLANT (09/10/2025 1:25 PM EST) Mckayla Aguilar CNM - 09/10/2025 1:25 PM EST Mckayla Narayan CNM 09/10/2025 1:41 PM Insertion/Removal of Contraceptive Capsule Date/Time: 09/10/2025 1:25 PM Performed by: Mckayla Narayan CNM Authorized by: Mckayla Narayan CNM Confirmed correct patient, procedure, site, and patient consented: Yes Participating Staff: Mckayla Narayan Consent: Consent obtained: Verbal and written Consent [...] yes OSM: 1 each etonogestrel-eluting 68 mg Mckayla Narayan CNM IN CLINIC/BEDSIDE ORDERAB LES Final Result * POCT , urine manually resulted (09/10/2025 1:17 PM EST) Preg Test, Ur Negative Negative, Indeterminate, None Detected, Trace, 3+, Specimen unsatisfactory for evaluation, Weakly Positive, 1+, 2+ QC Media Lot # [id number] Lot# Expiration Date [id number] QC TEST [id number] Urine 09/10/2025 1:17 PM EST Mckayla KLEIN POINT OF CARE TEST ENTER/ EDIT ORDERABLES Final Result * Referral to Breast Surgery (09/09/2025) Mckayla KLEIN OUTPATIENT REFERRAL ORDER DREW Final Result * BI US Breast Limited Bilateral (08/23/2025 9:51 AM EST) Anatomical Region Laterality Modality Breast Bilateral Ultrasound 08/23/2025 9:51 AM EST Narrative 08/23/2025 12:12 PM EST [facility] [address] [place] [address] Ultrasound Report Signed Patient: Angela Ceballos MR#: [id number] : 1995 Acct:[id number] Age/Sex: 30 / F ADM Date: 08/23/25 Loc: HO.MAMMO Attending Dr: Kat Nguyen MD Ordering Physician: MCKAYLA NARAYAN CNM Date of Service: 08/23/25 Procedure(s): US Breast BI Limited Mamm Only Accession Number(s): [id number] cc: Kat Nguyen MD; MCKAYLA NARAYAN CNM Reason for Exam: right and left breast pain upper outer quadrant, cystic area EXAMINATION: MM DIAGNOSTIC DIGITAL BREAST TOMOSYNTHESIS, BILATERAL Bilateral Limited ultrasound. CLINICAL INFORMATION: Bilateral breast pain. COMPARISON: Mammography: Comparison is made with relevant prior exams. TECHNIQUE: Digital breast mammography with tomosynthesis is performed in both the craniocaudal and mediolateral oblique views along with computer-aided detection (CAD). FINDINGS: The breasts are extremely dense, which lowers the sensitivity of mammography. Roselle markers at site of patient's pain in the upper outer left breast and upper outer upper central right breast without underlying abnormal finding. There are no significant masses, abnormal calcifications, or other abnormalities. Targeted color Doppler ultrasound scanning in the right breast from 10 2:00 demonstrates a area of probable adjacent minimally complicated cysts at 11:00 5 cm from the nipple measuring 9 x 4 x 8 mm. There is a thin intervening septation without internal vascular flow. Otherwise scanning from 10 -2:00 demonstrate normal fibroglandular breast tissue. Targeted color Doppler ultrasound in the left breast upper outer quadrant 15 cm from the nipple demonstrates a normal-appearing intramammary lymph node. Otherwise there is normal fibroglandular breast tissue. Results are provided to the patient at time of visit by the technologist. US/US Breast BI Limited Mamm Only IMPRESSION: Right: Probable adjacent minimally complicated cysts with a thin avascular intervening septation. Recommend 6 month follow-up for confirmation. No mammographic or sonographic abnormal finding to account for the patient's right breast pain. Recommend clinical evaluation follow-up. Left: Normal intramammary lymph node on ultrasound. Otherwise no mammographic or sonographic abnormal finding to account for the patient's left breast areas of pain. Recommend clinical evaluation and follow-up. ASSESSMENT: BI-RADS Category 3: Probably benign RECOMMENDATION: 6 Month F/U Electronically signed by: Cherelle Noble DO 08/23/2025 12:09 PM [facility] Dictated By: Cherelle Noble DO Signed By: <Electronically signed by Cherelle Noble DO in OV> 08/23/25 1209 DD/ 0951 TD/TT: 08/23/25 1016 Charging Plug Placer: Procedure Note Donotuseinterpreter, Image - 08/23/2025 [facility] [address] [place], [place] [address] Ultrasound Report Signed Patient: Angela Ceballos MR#: [id number] : 1995Acct:[id number] Age/Sex: 30 FADM Date: 08/23/25 Loc: HO.MAMMO Attending Dr: Kat Nguyen MD Ordering Physician: MCKAYLA NARAYAN CNM Date of Service: 08/23/25 Procedure(s): US Breast BI Limited Mamm Only Accession Number(s): [id number] cc: Kat Nguyen MD; MCKAYLA NARAYAN CNM Reason for Exam: right and left breast pain upper outer quadrant, cysticarea EXAMINATION: MM DIAGNOSTIC DIGITAL BREAST TOMOSYNTHESIS, BILATERAL Bilateral Limited ultrasound. CLINICAL INFORMATION: Bilateral breast pain. COMPARISON: Mammography: Comparison is made with relevant prior exams. TECHNIQUE: Digital breast mammography with tomosynthesis is performed in both the craniocaudal and mediolateral oblique views along with computer-aided detection (CAD). FINDINGS: The breasts are extremely dense, which lowers the sensitivity of mammography. Roselle markers at site of patient's pain in the upper outer left breast and upper outer upper central right breast without underlying abnormal finding. There are no significant masses, abnormal calcifications, or other abnormalities. Targeted color Doppler ultrasound scanning in the right breast from 10 2:00 demonstrates a area of probable adjacent minimally complicated cysts at 11:00 5 cm from the nipple measuring 9 x 4 x 8 mm. There is a thin intervening septation without internal vascular flow. Otherwise scanning from 10 -2:00 demonstrate normal fibroglandular breast tissue. Targeted color Doppler ultrasound in the left breast upper outer quadrant 15 cm from the nipple demonstrates a normal-appearing intramammary lymph node. Otherwise there is normal fibroglandular breast tissue.
[2025-09-10 22:35] LABS: Bacterial Vaginosis PCR NEGATIVE (Negative); Candida Group PCR NOT DETECTED (Not Detect); Candida glab krusei PCR NOT DETECTED (Not Detect); Trichomonas vaginalis PCR NOT DETECTED (Not Detect)
== END 2025-09-10 17:43 | disposition home or self-care (01) ==
LOC: HO.HHCLNP 17:42
PROVIDERS: Visit Provider Advanced Practice Midwife
DX: N89.8 Other specified noninflammatory disorders of vagina (principal)
CPT/HCPCS: 81515